=== PATIENT | female | born 1935 | race Caucasian/White ===

== ENCOUNTER 2018-02-12 05:15 | Emergency (ER) | payer MEDICARE, OTHER, SELFPAY ==
[2018-02-12 05:23] VITALS: BP 159/51; PULSE 60; RESP 17; TEMP 36.8; O2SAT 92
[2018-02-12 05:38] VITALS: BP 158/60; PULSE 70; RESP 16; O2SAT 94
[2018-02-12 06:00] LABS: Add Manual Diff / Slide Review NO; Basophils Percent Auto 0.4 % (0-2); Eosinophils Percent Auto 3.4 % (2-4); Hematocrit 37.4 % (36-46); Hemoglobin 12.8 g/dL (12.0-16.0); Lymphocytes Percent Auto 29.1 % (25-40); Mean Corpuscular HGB Conc 34.3 % (30-36); Mean Corpuscular Hemoglobin 30.8 PG (26-34); Mean Corpuscular Volume 89.7 fL (80-100); Monocytes Percent Auto 7.6 % (3-14); Neutrophils Absolute Auto 3200 /uL (3000-5900); Neutrophils Percent Auto 59.5 % (50-75); Platelet Count 211 X10^3/uL (150-400); Red Blood Cell Count 4.17 X10^6/uL (4.0-5.2); Red Cell Distribution Width 12.3 % (11.6-14.8); White Blood Cell Count 5.4 X10^3/uL (4.5-11.0)
[2018-02-12] MEDS: SODIUM CHLORIDE 0.9% 1,000 ML 1000 ML IV (06:04)
[2018-02-12 06:06] LABS: Alanine Aminotransferase 32 IU/L (9-52); Albumin 3.6 g/dL (3.5-5.0); Albumin Globulin Ratio 1.4 (1.0-2.8); Alkaline Phosphatase 109 U/L (38-126); Aspartate Aminotransferase 26 IU/L (14-36); Bilirubin Total 0.4 mg/dL (0.2-1.3); Blood Urea Nitrogen 12 mg/dL (7-17); Calcium 8.8 mg/dL (8.4-10.2); Carbon Dioxide 31 mmol/L (22-32); Chloride 90 mmol/L (98-107); Estimated Glomerular Filt Rate > 60.0 mL/min (>60); Globulin 2.6 g/dL (1.7-4.1); Glucose 102 mg/dL (80-110); HEMOLYSIS < 15 (0-50); Potassium 3.8 mmol/L (3.4-5.1); Sodium 128 mmol/L (137-145); Total Protein 6.2 g/dL (6.3-8.2)
[2018-02-12 06:18] LABS: Troponin I < 0.012 ng/mL (0.01-0.034)
--- NOTE | 2018-02-12 07:10 | ED.WEAKNESS ---
HPI - Weakness General Chief complaint: Weakness Stated complaint: weakness Time Seen by Provider: 02/12/18 05:33 Source: patient, family and EMS Mode of arrival: EMS Limitations: no limitations History of Present Illness HPI Narrative: 82-year-old female presents to the emergency department via EMS for an episode this morning of near syncopal episode with diaphoresis upon getting out of bed this morning. She went to bed feeling fine and denies any recent illness, diet or medication change. She states she felt fine when she woke up and developed the above-stated symptoms when she sat up from bed. When EMS arrived they found her systolic blood pressure to be in the 90s. An IV was placed and by arrival her blood pressure was in the 150s. She has remained asymptomatic for the duration of her visit. Patient denies new neuro symptoms. 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 She gets around with a scooter at baseline and can walk with assistance. MD Complaint: generalized weakness Onset (ago): minute(s) Duration: improved and now resolved Location: generalized Migration: none Severity: mild Relieving factors: none Exacerbating factors: movement Associated symptoms: denies other symptoms Related Data Home Medications Medication Instructions Recorded Confirmed ASCORBIC ACID (VITAMIN C ER) 1,500 mg PO Q DAY #0 11/28/10 11/26/17 Previous Rx's Medication Instructions Recorded atenolol 12.5 mg PO BID #90 tab 05/25/17 alendronate [Fosamax] 70 mg PO QWEEK #12 tab 09/07/17 carbamazepine 200 mg PO QID #360 tabs 09/07/17 losartan 50 mg PO QDAY #90 tab 09/07/17 clopidogrel 75 mg tablet 75 mg PO QDAY #90 tab 11/17/17 losartan 100 mg tablet 100 mg PO DAILY #90 tab 11/26/17 atorvastatin 40 mg tablet 40 mg PO HS #90 tab 11/30/17 amlodipine 5 mg tablet 5 mg PO BID #180 tab 12/13/17 phenobarbital 32.4 mg tablet See Label Instructions PO QDAY #90 12/28/17 tab Allergies Allergy/AdvReac Type Severity Reaction Status Date / Time lisinopril [LISINOPRIL] Allergy Mild Cough Verified 11/26/17 15:59 adhesive [ADHESIVE] Allergy Unknown (tape) Verified 11/26/17 15:59 codeine [CODEINE] Allergy Unknown Verified 11/26/17 15:59 phenytoin [PHENYTOIN] Allergy Unknown Verified 11/26/17 15:59 Review of Systems Review of Systems All systems reviewed & are unremarkable except as noted in HPI and below Constitutional Denies chills, Denies fever(s), Denies lethargy and Denies weakness Eyes Denies change in vision, Denies eye discharge, Denies irritation and Denies loss of vision ENT Ears, Nose, Mouth, and Throat: Denies change in voice, Denies neck pain and Denies sore throat Cardiovascular Denies chest pain, Denies irregular heart rhythm, Reports lightheadedness, Denies palpitations, Denies dyspnea, Denies dyspnea on exertion and Denies orthopnea Respiratory Denies cough, Denies dyspnea, Denies dyspnea on exertion and Denies wheezing Gastrointestinal Gastrointestinal: Denies abdominal pain, Denies change in bowel habits, Denies diarrhea, Denies nausea and Denies vomiting Genitourinary Denies hematuria, Denies flank pain, Denies urinary incontinence and Denies urinary urgency Musculoskeletal Denies neck pain Integumentary/Breasts Denies pruritus, Denies erythema, Denies rash and Denies wounds Neurologic Denies confusion, Denies loss of vision and Denies weakness Psychiatric Denies anxiety, Denies confusion, Denies depression, Denies homicidal ideation and Denies suicidal ideation Endocrine Denies palpitations Hematologic/Lymphatic Denies easy bruising Allergic/Immunologic Denies wheezing [facility] Medical History Carotid artery disease (Chronic Unknown) Chronic UTI (Chronic Unknown) Hyperlipidemia (Chronic Unknown) Hypertension (Chronic Unknown) Osteopenia (Chronic 2007) Pacemaker (Chronic Unknown) History of CVA (cerebrovascular accident) (Resolved 2013) Myocardial infarction (Resolved Unknown) Seizure (Resolved Unknown) Family History Father Alcoholism Sister Breast cancer Social History Smoking Status: Never smoker Exam Narrative Exam Narrative: Pleasant 82-year-old female in no obvious or significant distress Initial Vital Signs Initial Vital Signs: Vital Signs Temperature 98.2 F 02/12/18 05:23 Pulse Rate 60 02/12/18 05:23 Respiratory Rate 17 02/12/18 05:23 Blood Pressure 159/51 H 02/12/18 05:23 Pulse Oximetry 92 02/12/18 05:23 Const General: cooperative and well developed Nutritional Appearance: well nourished Orientation: alert, awake, oriented x3 and not confused HENAL Head: other (minimal erythema on L forehead, possible spider bite. No fluctuance or induration) Nose: external nose normal Mouth: oral mucosae normal Teeth and gingiva: dentition normal Eyes General: appearance normal, both eyes and all related structures Eyelids: eyelids normal Conjunctivae: conjunctivae normal Sclera: sclerae normal Pupils: PERRL EOM: EOM intact bilaterally Chest Chest: normal inspection of the chest Resp Effort & Inspection: normal respiratory effort, able to speak in complete sentences, no respiratory distress and no use of accessory muscles Auscultation: clear to auscultation bilaterally, no rales, no rhonchi and no wheezes Cardio Rate: regular rate Rhythm: regular rhythm Heart Sounds: no click, no gallops, no murmurs and no rubs Pulses: normal peripheral pulses GI Inspection: non-distended Palpation: soft, no hepatosplenomegaly, No guarding, No pulsatile mass and No tender Auscultation: normal bowel sounds Back/Spine/Pelvis Back: normal to inspection Neuro General: alert, awake and oriented x3 Cranial Nerves: CN's II-XI intact bilaterally Cognition: normal cognition Speech: speech normal Course Orders Ordered: ED Orders 02/12/18 05:27 EKG-12 Lead Stat 02/12/18 05:39 Complete Blood Count AUTO DIFF Stat Comprehensive Metabolic Panel Stat Troponin I Stat 02/12/18 07:27 XR chest 1V Stat 02/12/18 08:00 EKG-12 Lead Stat 02/12/18 08:03 Troponin I Stat Discontinued Medications Sodium Chloride (Normal Saline 0.9%) 1,000 mls @ 1,000 mls/hr IV CONT CASSANDRA Last Infusion: 02/12/18 08:02 Dose: 0 mls/hr Admin: 02/12/18 06:04 Dose: 1,000 mls/hr Vital Signs - 8 hr 02/12/18 05:23 02/12/18 05:38 02/12/18 07:42 Temperature 98.2 F Pulse Rate 60 70 65 Pulse Rate [Orthostatic Lying] Pulse Rate [Orthostatic Sitting] Pulse Rate [Orthostatic Standing] Respiratory Rate 17 16 13 Blood Pressure 159/51 H Blood Pressure [Left Arm] 158/60 H 160/57 H Blood Pressure [Orthostatic Lying] Blood Pressure [Orthostatic Sitting] Blood Pressure [Orthostatic Standing] Pulse Oximetry 92 94 99 02/12/18 09:37 02/12/18 10:07 Temperature Pulse Rate 64 Pulse Rate [Orthostatic Lying] 63 Pulse Rate [Orthostatic Sitting] 70 Pulse Rate [Orthostatic Standing] 81 Respiratory Rate 18 Blood Pressure Blood Pressure [Left Arm] 145/80 H Blood Pressure [Orthostatic Lying] 157/65 H Blood Pressure [Orthostatic Sitting] 158/107 H Blood Pressure [Orthostatic Standing] 145/80 H Pulse Oximetry 98 MDM - Weakness Medical Records Attestation: I reviewed the patient's medical records. Lab Data Attestation: I reviewed the patient's lab results. patient is hyponatremic, but this is chronic Result diagrams: 02/12/18 05:39 02/12/18 05:39 Lab Results 02/12/18 02/12/18 02/12/18 Range/Units 05:39 05:39 05:39 WBC 5.4 (4.5-11.0) X10^3/uL RBC 4.17 (4.0-5.2) X10^6/uL Hgb 12.8 (12.0-16.0) g/dL Hct 37.4 (36-46) % MCV 89.7 (80-100) fL MCH 30.8 (26-34) PG MCHC 34.3 (30-36) % RDW 12.3 (11.6-14.8) % Plt Count 211 (150-400) X10^3/uL Neut % (Auto) 59.5 (50-75) % Lymph % (Auto) 29.1 (25-40) % Adams % (Auto) 7.6 (3-14) % Eos % (Auto) 3.4 (2-4) % Baso % (Auto) 0.4 (0-2) % Neut # (Auto) 3200 (8449-1506) /uL Sodium 128 L (137-145) mmol/L Potassium 3.8 (3.4-5.1) mmol/L Chloride 90 L (98-107) mmol/L Carbon Dioxide 31 (22-32) mmol/L BUN 12 (7-17) mg/dL Creatinine 0.60 (0.52-1.04) mg/dL Estimated GFR > 60.0 (>60) mL/min BUN/Creatinine Ratio 20.0 (6-22) Glucose 102 (80-110) mg/dL Calcium 8.8 (8.4-10.2) mg/dL Total Bilirubin 0.4 (0.2-1.3) mg/dL AST 26 (14-36) IU/L ALT 32 (9-52) IU/L Alkaline Phosphatase 109 (38-126) U/L Troponin I < 0.012 (0.01-0.034) ng/mL Total Protein 6.2 L (6.3-8.2) g/dL Albumin 3.6 (3.5-5.0) g/dL Globulin 2.6 (1.7-4.1) g/dL Albumin/Globulin Ratio 1.4 (1.0-2.8) /05/22 Range/Units 08:03 WBC (4.5-11.0) X10^3/uL RBC (4.0-5.2) X10^6/uL Hgb (12.0-16.0) g/dL Hct (36-46) % MCV (80-100) fL MCH (26-34) PG MCHC (30-36) % RDW (11.6-14.8) % Plt Count (150-400) X10^3/uL Neut % (Auto) (50-75) % Lymph % (Auto) (25-40) % Adams % (Auto) (3-14) % Eos % (Auto) (2-4) % Baso % (Auto) (0-2) % Neut # (Auto) (2489-6522) /uL Sodium (137-145) mmol/L Potassium (3.4-5.1) mmol/L Chloride (98-107) mmol/L Carbon Dioxide (22-32) mmol/L BUN (7-17) mg/dL Creatinine (0.52-1.04) mg/dL Estimated GFR (>60) mL/min BUN/Creatinine Ratio (6-22) Glucose (80-110) mg/dL Calcium (8.4-10.2) mg/dL Total Bilirubin (0.2-1.3) mg/dL AST (14-36) IU/L ALT (9-52) IU/L Alkaline Phosphatase (38-126) U/L Troponin I < 0.012 (0.01-0.034) ng/mL Total Protein (6.3-8.2) g/dL Albumin (3.5-5.0) g/dL Globulin (1.7-4.1) g/dL Albumin/Globulin Ratio (1.0-2.8) Imaging Data Chest x-ray: My impression: PROCEDURE: XR CHEST 1V INDICATIONS: fall, trauma, preop TECHNIQUE: One view of the chest was acquired. COMPARISON: [facility], , CHEST 2 VIEW, 02/26/2016, 11:38. FINDINGS: Surgical changes and devices: Left-sided pacer. Lungs and pleura: No pleural effusions or pneumothorax. Lungs are clear. Mediastinum: Mediastinal contours appear normal. Heart size is normal. Bones and chest wall: No suspicious bony lesions. Overlying soft tissues appear unremarkable. IMPRESSION: No acute process. Dictated by: Nakul Raya M.D. on 02/12/2018 at 8:11 Approved by: Nakul Raya M.D. on 02/12/2018 at 8:12 ECG Data Attestation: I personally reviewed and interpreted this ECG as follows: Prior ECG tracings: available for review Interpretation: paced at 60. No ectopy. No ST segmental changes MDM Narrative Medical decision making narrative: 82-year-old female with history of stroke presents with near-syncope with change in position this morning. She has been asymptomatic for the duration of her visit. Vital signs have been stable, orthostatics show no change. Multiple EKGs are unchanged. Troponin times to unremarkable. Lab abnormalities are chronic for her. She will follow up closely. Family at bedside and is in agreement with this plan Discharge Plan Departure Patient Disposition: Home, Self-Care Clinical Impression: Near syncope Discharge Date/Time: 02/12/18 10:09 Interventions: ED Discharge Assessment Last Done: 02/12/18 10:09 Instructions: DI for Syncope in Adults (Fainting) Activity Restrictions/Additional Instructions: *You have been diagnosed with [near syncope ] *What to do: * continue to Take medications as directed *Follow up with your primary care provider in 2-3 days, call for an appointment. Let them know you were seen in the Emergency Department and that we ask that you be seen in follow up *Return to ER if you should have any new, worsening or concerning symptoms, such as [repeat episodes, chest pain, shortness of breath or other symptoms ] Prescriptions: No Action losartan 100 mg tablet 100 mg PO DAILY Qty: 90 RF: 1 ASCORBIC ACID (VITAMIN C ER) 1,500 mg PO Q DAY Qty: 0 RF: 0 atenolol 25 MG tablet 12.5 mg PO BID Qty: 90 RF: 3 losartan 50 MG tablet 50 mg PO QDAY Qty: 90 RF: 0 alendronate [Fosamax] 70 MG tablet 70 mg PO QWEEK Qty: 12 RF: 0 carbamazepine 200 MG tablet 200 mg PO QID Qty: 360 RF: 0 clopidogrel [Plavix] 75 mg tablet 75 mg PO QDAY Qty: 90 RF: 0 atorvastatin 40 mg tablet 40 mg PO HS Qty: 90 RF: 1 amlodipine [Norvasc] 5 mg tablet 5 mg PO BID Qty: 180 RF: 1 phenobarbital 32.4 mg tablet See Label Instructions PO QDAY Qty: 90 RF: 0
--- NOTE | 2018-02-12 07:27 | DI.RAD.S_ITS ---
PROCEDURE: XR CHEST 1V INDICATIONS: fall, trauma, preop TECHNIQUE: One view of the chest was acquired. COMPARISON: [facility], , CHEST 2 VIEW, 02/26/2016, 11:38. FINDINGS: Surgical changes and devices: Left-sided pacer. Lungs and pleura: No pleural effusions or pneumothorax. Lungs are clear. Mediastinum: Mediastinal contours appear normal. Heart size is normal. Bones and chest wall: No suspicious bony lesions. Overlying soft tissues appear unremarkable. IMPRESSION: No acute process. Dictated by: Nakul Raya M.D. on 02/12/2018 at 8:11 Approved by: Nakul Raya M.D. on 02/12/2018 at 8:12
[2018-02-12 07:42] VITALS: BP 160/57; PULSE 65; RESP 13; O2SAT 99
[2018-02-12 08:36] LABS: Troponin I < 0.012 ng/mL (0.01-0.034)
[2018-02-12 09:37] VITALS: BP 145/80; BP 157/65; BP 158/107; PULSE 63; PULSE 70; PULSE 81
[2018-02-12 10:07] VITALS: BP 145/80; PULSE 64; RESP 18; O2SAT 98
== END 2018-02-12 10:09 | disposition home or self-care (01) ==
PROVIDERS: Emergency Medicine; Emergency Provider Emergency Medicine; PCP Family Medicine
DX: R55 Syncope and collapse (principal)
CPT/HCPCS: 71045; 80053; 81003; 84484; 85025; 93005; 93010; 96360; 96361; 99285

== ENCOUNTER → 2018-03-16 10:36 | Outpatient (CLI) | payer MEDICARE, OTHER, SELFPAY ==
[2018-03-16 11:26] LABS: Add Manual Diff / Slide Review NO; Basophils Percent Auto 0.4 % (0-2); Eosinophils Percent Auto 3.2 % (2-4); Hematocrit 40.2 % (36-46); Lymphocytes Percent Auto 22.4 % (25-40); Mean Corpuscular HGB Conc 34.8 % (30-36); Mean Corpuscular Hemoglobin 30.7 PG (26-34); Monocytes Percent Auto 5.7 % (3-14); Neutrophils Absolute Auto 3800 /uL (3000-5900); Neutrophils Percent Auto 68.3 % (50-75); Platelet Count 268 X10^3/uL (150-400); Red Blood Cell Count 4.57 X10^6/uL (4.0-5.2); Red Cell Distribution Width 12.5 % (11.6-14.8); White Blood Cell Count 5.5 X10^3/uL (4.5-11.0)
[2018-03-16 11:45] LABS: Alanine Aminotransferase 26 IU/L (9-52); Albumin 4.1 g/dL (3.5-5.0); Albumin Globulin Ratio 1.4 (1.0-2.8); Alkaline Phosphatase 117 U/L (38-126); Aspartate Aminotransferase 29 IU/L (14-36); Bilirubin Total 0.4 mg/dL (0.2-1.3); Blood Urea Nitrogen 13 mg/dL (7-17); Calcium 9.3 mg/dL (8.4-10.2); Carbon Dioxide 34 mmol/L (22-32); Chloride 91 mmol/L (98-107); Cholesterol 190 mg/dL (140-199); Estimated Glomerular Filt Rate > 60.0 mL/min (>60); Glucose 91 mg/dL (80-110); HDL Cholesterol 51 mg/dL (40-60); HEMOLYSIS < 15 (0-50); LDL Cholesterol Calculated 107 mg/dL (<100); Potassium 4.2 mmol/L (3.4-5.1); Sodium 133 mmol/L (137-145); Total Protein 7.1 g/dL (6.3-8.2); Triglycerides 161 mg/dL (35-150)
== END ==
PROVIDERS: PCP Family Medicine; Visit Provider Family Medicine
DX: E78.5 Hyperlipidemia, unspecified (principal); I10 Essential (primary) hypertension; I25.10 Atherosclerotic heart disease of native coronary artery without angina pectoris; Z51.81 Encounter for therapeutic drug level monitoring
CPT/HCPCS: 36415; 80053; 80061; 85025

== ENCOUNTER → 2018-03-23 13:26 | Outpatient (CLI) | payer MEDICARE, OTHER, SELFPAY | PROVIDERS: PCP Family Medicine; Visit Provider Family Medicine | DX: M81.0 Age-related osteoporosis without current pathological fracture (principal); Z78.0 Asymptomatic menopausal state | CPT/HCPCS: 77080 ==

== ENCOUNTER → 2018-10-10 14:32 | Outpatient (CLI) | payer MEDICARE, OTHER, SELFPAY ==
[2018-10-10 15:30] LABS: Add Manual Diff / Slide Review NO; Basophils Absolute Auto 0 /uL (0-100); Basophils Percent Auto 0.6 % (0-2); Eosinophils Absolute Auto 200 /uL (0-450); Eosinophils Percent Auto 3.4 % (2-4); Hematocrit 41.2 % (36-46); Hemoglobin 13.7 g/dL (12.0-16.0); Lymphocytes Absolute Auto 1700 /uL (1100-4500); Lymphocytes Percent Auto 25.7 % (25-40); Mean Corpuscular HGB Conc 33.3 % (30-36); Mean Corpuscular Hemoglobin 30.3 PG (26-34); Monocytes Absolute Auto 400 /uL (0-900); Monocytes Percent Auto 6.5 % (3-14); Neutrophils Absolute Auto 4300 /uL (1500-7000); Neutrophils Percent Auto 63.8 % (50-75); Platelet Count 259 X10^3/uL (150-400); Red Blood Cell Count 4.52 X10^6/uL (4.0-5.2); Red Cell Distribution Width 12.6 % (11.6-14.8); White Blood Cell Count 6.7 X10^3/uL (4.5-11.0)
[2018-10-10 15:49] LABS: BUN Creatinine Ratio 27.1 (6-22); Blood Urea Nitrogen 19 mg/dL (7-17); Calcium 9.6 mg/dL (8.4-10.2); Carbon Dioxide 33 mmol/L (22-32); Chloride 93 mmol/L (98-107); Cholesterol 189 mg/dL (140-199); Estimated Glomerular Filt Rate > 60.0 mL/min (>60); Glucose 98 mg/dL (80-110); HDL Cholesterol 51 mg/dL (40-60); HEMOLYSIS < 15 (0-50); LDL Cholesterol Calculated 81 mg/dL (<100); Potassium 4.5 mmol/L (3.4-5.1); Sodium 134 mmol/L (137-145); Triglycerides 287 mg/dL (35-150)
== END ==
PROVIDERS: PCP Family Medicine; Visit Provider Internal Medicine Cardiovascular Disease
DX: I48.0 Paroxysmal atrial fibrillation (principal); I10 Essential (primary) hypertension; E78.5 Hyperlipidemia, unspecified
CPT/HCPCS: 36415; 80048; 80061; 85025

== ENCOUNTER → 2019-03-31 14:50 | Outpatient (CLI) | payer MEDICARE, OTHER, SELFPAY ==
--- NOTE | 2019-03-31 16:18 | PT.OIE ---
Current Diagnoses Cerebral infarction, unspecified (03/31/19) Past Medical History (Last Reviewed 04/12/18 @ 15:02 by Jeanne Buchanan DO) Carotid artery disease (Chronic Unknown) Cataracts, bilateral (Resolved ~03/2012) Chronic UTI (Chronic Unknown) History of CVA (cerebrovascular accident) (Resolved 2013) Hyperlipidemia (Chronic Unknown) Hypertension (Chronic Unknown) Myocardial infarction (Resolved Unknown) Osteopenia (Chronic 2007) Pacemaker (Chronic ~09/2011) Seizure (Resolved Unknown) Seizures (Chronic) Past Surgical History (Last Reviewed 04/12/18 @ 15:02 by Jeanne Buchanan DO) History of permanent cardiac pacemaker placement (Resolved ~09/2011) Hx of cataract surgery (Resolved 03/2012) Hx of heart artery stent (Resolved 2009) Hx of hysterectomy (Resolved) Hx of resection of meningioma (Resolved 1984) Visit Care Team Role Provider Type Jeanne Buchanan DO Attending Provider Physician Primary Care Provider Specialty: [facility] Address: [address] [place] [address], [facility] Email: [email or web address] Physical Therapy Initial Evaluation PT-OP-A Visit Information Start: 04/05/19 16:17 Freq: Status: Active Protocol: Document 03/31/19 15:00 JIMENAS (Rec: 04/05/19 16:18 ADRIANNA [email or web address]) Out-Patient Physical Therapy Visit Information Visit Information Visit Type Initial Evaluation Visit Note Wheelchair evaluation only
--- NOTE | 2019-04-05 11:37 | PT.OIE ---
Current Diagnoses Cerebral infarction, unspecified (03/31/19) Past Medical History (Last Reviewed 04/12/18 @ 15:02 by Jeanne Buchanan DO) Carotid artery disease (Chronic Unknown) Cataracts, bilateral (Resolved ~03/2012) Chronic UTI (Chronic Unknown) History of CVA (cerebrovascular accident) (Resolved 2013) Hyperlipidemia (Chronic Unknown) Hypertension (Chronic Unknown) Myocardial infarction (Resolved Unknown) Osteopenia (Chronic 2007) Pacemaker (Chronic ~09/2011) Seizure (Resolved Unknown) Seizures (Chronic) Past Surgical History (Last Reviewed 04/12/18 @ 15:02 by Jeanne Buchanan DO) History of permanent cardiac pacemaker placement (Resolved ~09/2011) Hx of cataract surgery (Resolved 03/2012) Hx of heart artery stent (Resolved 2009) Hx of hysterectomy (Resolved) Hx of resection of meningioma (Resolved 1984) Visit Care Team Role Provider Type Jeanne Buchanan DO Attending Provider Physician Primary Care Provider Specialty: [facility] Address: [address] [place] [address], [address], [facility] Email: [email or web address]
== END ==
PROVIDERS: PCP Family Medicine; Visit Provider Family Medicine
DX: I63.9 Cerebral infarction, unspecified (principal)
CPT/HCPCS: 97161

== ENCOUNTER → 2019-05-24 09:43 | Outpatient (CLI) | payer MEDICARE, OTHER, SELFPAY ==
[2019-05-24 10:10] LABS: Add Manual Diff / Slide Review NO; Basophils Absolute Auto 0 /uL (0-100); Basophils Percent Auto 0.4 % (0-2); Eosinophils Absolute Auto 100 /uL (0-450); Eosinophils Percent Auto 2.4 % (2-4); Hematocrit 40.6 % (36-46); Hemoglobin 13.8 g/dL (12.0-16.0); Lymphocytes Absolute Auto 1200 /uL (1100-4500); Lymphocytes Percent Auto 21.7 % (25-40); Mean Corpuscular HGB Conc 33.9 % (30-36); Mean Corpuscular Hemoglobin 30.6 PG (26-34); Mean Corpuscular Volume 90.3 fL (80-100); Monocytes Absolute Auto 300 /uL (0-900); Monocytes Percent Auto 4.8 % (3-14); Neutrophils Absolute Auto 3800 /uL (1500-7000); Neutrophils Percent Auto 70.7 % (50-75); Platelet Count 247 X10^3/uL (150-400); Red Blood Cell Count 4.49 X10^6/uL (4.0-5.2); White Blood Cell Count 5.4 X10^3/uL (4.5-11.0)
[2019-05-24 10:37] LABS: Alanine Aminotransferase 22 IU/L (<35); Albumin 3.9 g/dL (3.5-5.0); Albumin Globulin Ratio 1.6 (1.0-2.8); Alkaline Phosphatase 136 U/L (38-126); Aspartate Aminotransferase 26 IU/L (14-36); BUN Creatinine Ratio 23.3 (6-22); Bilirubin Total 0.4 mg/dL (0.2-1.3); Blood Urea Nitrogen 14 mg/dL (7-17); Calcium 9.5 mg/dL (8.4-10.2); Carbon Dioxide 32 mmol/L (22-32); Chloride 92 mmol/L (98-107); Cholesterol 207 mg/dL (140-199); Estimated Glomerular Filt Rate > 60.0 mL/min (>60); Globulin 2.4 g/dL (1.7-4.1); Glucose 93 mg/dL (80-110); HDL Cholesterol 58 mg/dL (40-60); HEMOLYSIS < 15 (0-50); LDL Cholesterol Calculated 115 mg/dL (<100); Potassium 4.3 mmol/L (3.4-5.1); Sodium 130 mmol/L (137-145); Total Protein 6.3 g/dL (6.3-8.2); Triglycerides 169 mg/dL (35-150)
[2019-05-24 11:06] LABS: Thyroid Stimulating Hormone 3.32 uIU/mL (0.47-4.68)
[2019-05-27 16:14] LABS: Carbamazepine Tegretol Level 8.9 mg/L (4.0-12.0)
== END ==
PROVIDERS: PCP Family Medicine; Visit Provider Family Medicine
DX: Z51.81 Encounter for therapeutic drug level monitoring (principal); E78.5 Hyperlipidemia, unspecified; I10 Essential (primary) hypertension; Z86.69 Personal history of other diseases of the nervous system and sense organs; Z86.73 Personal history of transient ischemic attack (TIA), and cerebral infarction without residual deficits
CPT/HCPCS: 36415; 80053; 80061; 80156; 84443; 85025

== ENCOUNTER → 2020-06-05 09:15 | Outpatient (CLI) | payer MEDICARE, OTHER, SELFPAY ==
[2020-06-05 10:09] LABS: Add Manual Diff / Slide Review NO; Basophils Absolute Auto 0 /uL (0-100); Basophils Percent Auto 0.4 % (0-2); Eosinophils Absolute Auto 200 /uL (0-450); Eosinophils Percent Auto 2.3 % (2-4); Hematocrit 41.2 % (36-46); Hemoglobin 13.8 g/dL (12.0-16.0); Lymphocytes Absolute Auto 1500 /uL (1100-4500); Lymphocytes Percent Auto 21.1 % (25-40); Mean Corpuscular HGB Conc 33.5 % (30-36); Mean Corpuscular Hemoglobin 30.3 PG (26-34); Mean Corpuscular Volume 90.3 fL (80-100); Monocytes Absolute Auto 400 /uL (0-900); Monocytes Percent Auto 6.3 % (3-14); Neutrophils Absolute Auto 4800 /uL (1500-7000); Neutrophils Percent Auto 69.9 % (50-75); Platelet Count 248 X10^3/uL (150-400); Red Blood Cell Count 4.56 X10^6/uL (4.0-5.2); Red Cell Distribution Width 12.8 % (11.6-14.8); White Blood Cell Count 6.9 X10^3/uL (4.5-11.0)
[2020-06-05 10:58] LABS: BUN Creatinine Ratio 27.3 (6-22); Blood Urea Nitrogen 15 mg/dL (7-17); Calcium 9.4 mg/dL (8.4-10.2); Carbon Dioxide 33 mmol/L (22-32); Chloride 94 mmol/L (98-107); Cholesterol 191 mg/dL (140-199); Estimated Glomerular Filt Rate > 60.0 mL/min (>60); Glucose 91 mg/dL (80-110); HDL Cholesterol 58 mg/dL (40-60); HEMOLYSIS < 15 (0-50); LDL Cholesterol Calculated 95 mg/dL (<100); Potassium 4.3 mmol/L (3.4-5.1); Sodium 129 mmol/L (137-145); Triglycerides 191 mg/dL (35-150)
== END ==
PROVIDERS: PCP Family Medicine; Referring Provider Internal Medicine Cardiovascular Disease; Visit Provider Internal Medicine Cardiovascular Disease
DX: I10 Essential (primary) hypertension (principal); E78.5 Hyperlipidemia, unspecified
CPT/HCPCS: 36415; 80048; 80061; 85025

== ENCOUNTER → 2020-07-03 08:47 | Outpatient (CLI) | payer MEDICARE, OTHER, SELFPAY ==
[2020-07-03 10:21] LABS: BUN Creatinine Ratio 32.1 (6-22); Blood Urea Nitrogen 17 mg/dL (7-17); Calcium 9.3 mg/dL (8.4-10.2); Carbon Dioxide 33 mmol/L (22-32); Chloride 97 mmol/L (98-107); Estimated Glomerular Filt Rate > 60.0 mL/min (>60); Glucose 97 mg/dL (80-110); HEMOLYSIS < 15 (0-50); Potassium 4.2 mmol/L (3.4-5.1); Sodium 131 mmol/L (137-145)
== END ==
PROVIDERS: PCP Family Medicine; Referring Provider Internal Medicine Cardiovascular Disease; Visit Provider Internal Medicine Cardiovascular Disease
DX: I10 Essential (primary) hypertension (principal)
CPT/HCPCS: 36415; 80048

== ENCOUNTER 2020-11-12 11:32 | Emergency (ER) | payer MEDICARE, OTHER, SELFPAY ==
[2020-11-12] VITALS (18 sets, daily range): BP systolic 143–220; BP diastolic 70–113; PULSE 60–70; RESP 12; TEMP 36.2; O2SAT 91–98; BMI 29.2
--- NOTE | 2020-11-12 11:34 | ED_ITS ---
HPI - Extremity Injury (Lower) General Chief Complaint: Extremity Injury, Lower Stated Complaint: Leg pain Time Seen by Provider: 11/12/20 11:34 Source: patient, family and EMS Mode of arrival: EMS Limitations: no limitations History of Present Illness HPI Narrative: 84-year-old female nonsmoker with history of hypertension, hyperlipidemia, anticoagulated with prior stroke and right-sided deficits presents by EMS for evaluation of severe left leg pain for the past few days. She lives at home alone and normally uses a walker to transfer but does not ambulate. She has been in too much pain to even put weight on her left leg despite denying any obvious traumatic injury. She has had no fever or chills. She states she has significant pain with standing and motion but is otherwise well. She has significant swelling of her knee without redness or warmth. She is not dizzy nor weak or lightheaded. MD complaint: knee injury Place: home Severity: moderate Relieving factors: rest Exacerbating factors: weight bearing, movement and palpation Associated symptoms: swelling Other symptoms: none Related Data Home Medications Medication Instructions Recorded Confirmed ASCORBIC ACID (VITAMIN C ER) 1,500 mg PO Q DAY #0 11/28/10 09/13/20 Previous Rx's Medication Instructions Recorded PT/OT Treat and Eval/Wheelchair #1 each 03/17/19 Assessment apixaban 5 mg tablet 5 mg PO BID #60 tab 01/30/20 amlodipine 5 mg tablet 5 mg PO BID #180 tab 06/05/20 losartan 100 mg tablet See Rx Instructions .ROUTE 08/23/20 .COMPLEX #90 tab atenolol 25 mg tablet 25 mg PO BID #180 tab 09/13/20 atorvastatin 40 mg tablet See Rx Instructions .ROUTE 10/16/20 .COMPLEX #90 tab carbamazepine 200 mg tablet See Rx Instructions .ROUTE 10/29/20 .COMPLEX #90 tab phenobarbital 32.4 mg tablet See Rx Instructions .ROUTE 11/06/20 .COMPLEX #60 tab hydrocodone-acetaminophen 1 tab PO Q4-6H PRN #10 tab 11/12/20 Allergies Allergy/AdvReac Type Severity Reaction Status Date / Time lisinopril [LISINOPRIL] Allergy Mild Cough Verified 11/12/20 11:37 adhesive [ADHESIVE] Allergy Unknown (tape) Verified 11/12/20 11:37 codeine [CODEINE] Allergy Unknown Verified 11/12/20 11:37 phenytoin [PHENYTOIN] Allergy Unknown Verified 11/12/20 11:37 Review of Systems Constitutional Constitutional: Denies chills, Denies fatigue, Denies fever(s), Denies frequent falls, Denies lethargy and Denies weakness Eyes Eyes: Denies change in vision, Denies eye discharge, Denies irritation and Denies loss of vision ENT Ears, Nose, Mouth, and Throat: Denies change in voice, Denies dizziness, Denies neck pain, Denies sore throat and Denies throat swelling Cardiovascular Cardiovascular: Denies chest pain, Denies irregular heart rhythm, Denies lightheadedness, Denies palpitations, Denies dyspnea, Denies dyspnea on exertion and Denies orthopnea Respiratory Respiratory: Denies cough, Denies dyspnea, Denies dyspnea on exertion and Denies wheezing Gastrointestinal Gastrointestinal: Denies abdominal pain, Denies change in bowel habits, Denies diarrhea, Denies nausea and Denies vomiting Musculoskeletal Musculoskeletal: Reports joint swelling, Reports limited range of motion, Denies neck pain and Denies numbness Integumentary/Breasts Skin/Breast: Denies pruritus, Denies erythema, Denies rash and Denies wounds Neurologic Neurologic: Denies behavioral changes, Denies confusion, Denies dizziness, Denies frequent falls, Denies loss of vision, Denies numbness and Denies weakness Psychiatric Psychiatric: Denies anxiety, Denies behavioral changes, Denies confusion, Denies depression, Denies homicidal ideation and Denies suicidal ideation Endocrine Endocrine: Denies fatigue, Denies flushing and Denies palpitations Hematologic/Lymphatic Hematologic/Lymphatic: Denies easy bruising Allergic/Immunologic Allergic/Immunologic: Denies urticaria, Denies throat swelling and Denies wheezing Patient History Medical History (Updated 11/12/20 @ 16:11 by Jose Giraldo DO) Carotid artery disease (Unknown) Cataracts, bilateral (~03/2012) Chronic UTI (Unknown) History of CVA (cerebrovascular accident) (2013) Hyperlipidemia (Unknown) Hypertension (Unknown) Myocardial infarction (Unknown) Osteopenia (2007) Pacemaker (~09/2011) Right sided weakness Seizure (Unknown) Seizures Surgical History History of permanent cardiac pacemaker placement (~09/2011) Hx of cataract surgery (03/2012) Hx of heart artery stent (2009) Hx of hysterectomy Hx of resection of meningioma (1984) Family History (Updated 08/16/19 @ 16:24 by Bacilio Davila DO) Father Alcoholism Sister Breast cancer Mother No problems noted. Social History Smoking Status: Never smoker Smoking Status: Never smoker Exam Narrative Exam Narrative: GENERAL: [84] year old patient appears stated age. Well- nourished, well-developed patient, in mild distress. HEAD: Atraumatic. Normocephalic. EYES: Pupils equal round and reactive. Extraocular motions intact. No scleral icterus. No injection or drainage. ENT: Nose without bleeding, purulent drainage. Throat without erythema, tonsillar hypertrophy or exudate. Airway patent. NECK: Trachea midline. Non tender CARDIOVASCULAR: Regular rate and rhythm without murmurs, gallops, or rubs. RESPIRATORY: Clear to auscultation. Breath sounds equal bilaterally. No wheezes, rales, or rhonchi. GASTROINTESTINAL: Abdomen soft, non-tender, nondistended. EXTREMITIES: Left knee with moderate effusion, no redness, mild warmth and tenderness to palpation. No tenderness in foot, ankle or hip on this side. BACK: Nontender without deformity or crepitance. No flank tenderness. NEURO: AOx3. Right-sided weakness is chronic per patient and family SKIN: No rash or erythema of visible areas Initial Vital Signs Initial Vital Signs: Vital Signs Temperature 97.2 F L 11/12/20 11:35 Pulse Rate 60 11/12/20 11:35 Respiratory Rate 12 11/12/20 11:35 Blood Pressure 143/97 H 11/12/20 11:35 Pulse Oximetry 95 11/12/20 11:35 Procedures Joint Aspiration Joint Asp./Inject. 1: Time Out Performed: Yes Side of body: left Joint Aspirated: knee Ultrasound Guidance: No Skin Prep: Chlorhexidine Local Anesthetic: lidocaine 1% and with epi Amount of anesthesia used (mL): 6 Needle Size Used: 18G Fluid Obtained: clear Total fluid obtained (mL): 65 Patient Tolerated Procedure: Well Complications: none Course Course Course Narrative: Patient still resistant to standing and attempt at transfer after joint aspiration. This is a significant recent change and patient lives at home, hospitalist was consulted for possible admission but after lengthy bedside discussion patient and family would prefer a trial at home 1st. Family can stay with her and help assist and insure that she tolerates the pain medications. They have been given return precautions and questions have been answered to their apparent satisfaction Orders Ordered: Discontinued Medications Bupivacaine HCl/Epinephrine Bitart (Bupivacaine 0.5% W/ Epi (Pf) 30 Ml Vial) 5 ml SUBCUT NOW ONE Stop: 11/12/20 12:14 Last Admin: 11/12/20 12:26 Dose: 5 ml Documented by: CTRRIVAS Sodium Chloride (Normal Saline 0.9%) 1,000 mls @ 125 mls/hr IV CONT CASSANDRA Last Admin: 11/12/20 12:23 Dose: 125 mls/hr Documented by: CTRRIVAS Vital Signs Vital signs: Vital Signs - 8 hr 11/12/20 11:35 Temperature 97.2 F L Pulse Rate 60 Respiratory Rate 12 Blood Pressure 143/97 H Pulse Oximetry 95 MDM - Extremity Injury (Lower) Lab Data Result diagrams: 11/12/20 12:17 11/12/20 12:17 Labs: Lab Results 11/12/20 11/12/20 11/12/20 Range/Units 11:37 12:17 12:17 WBC 6.2 (4.5-11.0) X10^3/uL RBC 4.40 (4.0-5.2) X10^6/uL Hgb 13.4 (12.0-16.0) g/dL Hct 38.8 (36-46) % MCV 88.0 (80-100) fL MCH 30.5 (26-34) PG MCHC 34.6 (30-36) % RDW 12.9 (11.6-14.8) % Plt Count 227 (150-400) X10^3/uL Neut % (Auto) 79.4 H (50-75) % Lymph % (Auto) 13.8 L (25-40) % [place] % (Auto) 4.9 (3-14) % Eos % (Auto) 1.4 L (2-4) % Baso % (Auto) 0.5 (0-2) % Neut # (Auto) 4900 (6964-3911) /uL Lymph # (Auto) 900 L (3135-2631) /uL [place] # (Auto) 300 (0-900) /uL Eos # (Auto) 100 (0-450) /uL Baso # (Auto) 0 (0-100) /uL ESR (0-20) MM/HR Sodium 127 L (137-145) mmol/L Potassium 4.6 (3.4-5.1) mmol/L Chloride 92 L (98-107) mmol/L Carbon Dioxide 30 (22-32) mmol/L BUN 15 (7-17) mg/dL Creatinine 0.52 (0.52-1.04) mg/dL Estimated GFR > 60.0 (>60) mL/min BUN/Creatinine Ratio 28.8 H (6-22) Glucose 102 (80-110) mg/dL Calcium 9.4 (8.4-10.2) mg/dL Total Bilirubin 0.2 (0.2-1.3) mg/dL AST 31 (14-36) IU/L ALT 23 (<35) IU/L Alkaline Phosphatase 129 H (38-126) U/L Total Creatine Kinase (30-135) U/L CK-MB (CK-2) CK-MB (CK-2) Rel Index Troponin I (0.01-0.034) ng/mL C-Reactive Protein (<1.0) mg/dL NT-Pro-B Natriuret Pep (<450) pg/mL Total Protein 6.3 (6.3-8.2) g/dL Albumin 3.7 (3.5-5.0) g/dL Globulin 2.6 (1.7-4.1) g/dL Albumin/Globulin Ratio 1.4 (1.0-2.8) Urine Color Yellow Urine Appearance Sl cloudy Urine pH 7.5 (4.5-8.0) Ur Specific [place] 1.020 (1.000-1.035) Urine Protein Negative (Negative) Urine Glucose (UA) Negative (Negative) g/dL Urine Ketones Negative (NEGATIVE) Urine Occult Blood Negative (Negative) Urine Nitrate Negative (Negative) Urine Bilirubin Negative (NEGATIVE) Urine Urobilinogen 0.2 (0.2) E.U./dL Ur Leukocyte Esterase Negative (NEGATIVE) Urine RBC None seen (0-5/HPF) Urine WBC 1-5/hpf (0-5/HPF) Ur Squamous Epith Cells 1-5 /hpf (0-5/HPF) Urine Bacteria Many (>30) H (None) Ur Culture Indicated? Specimen cultured Fluid Color Fluid Appearance Fluid RBC /uL Fld Tot Nucleated Cell /uL Fluid Polynuclear WBCs % Fluid Mononuclear WBCs % Fluid Eosinophils % Fluid Other Cells % Body Fluid Clot SARS-CoV-2 (PCR) (Negative) 11/12/20 11/12/20 11/12/20 Range/Units 12:17 12:17 12:17 WBC (4.5-11.0) X10^3/uL RBC (4.0-5.2) X10^6/uL Hgb (12.0-16.0) g/dL Hct (36-46) % MCV (80-100) fL MCH (26-34) PG MCHC (30-36) % RDW (11.6-14.8) % Plt Count (150-400) X10^3/uL Neut % (Auto) (50-75) % Lymph % (Auto) (25-40) % [place] % (Auto) (3-14) % Eos % (Auto) (2-4) % Baso % (Auto) (0-2) % Neut # (Auto) (2187-9622) /uL Lymph # (Auto) (3874-3032) /uL [place] # (Auto) (0-900) /uL Eos # (Auto) (0-450) /uL Baso # (Auto) (0-100) /uL ESR 14 (0-20) MM/HR Sodium (137-145) mmol/L Potassium (3.4-5.1) mmol/L Chloride (98-107) mmol/L Carbon Dioxide (22-32) mmol/L BUN (7-17) mg/dL Creatinine (0.52-1.04) mg/dL Estimated GFR (>60) mL/min BUN/Creatinine Ratio (6-22) Glucose (80-110) mg/dL Calcium (8.4-10.2) mg/dL Total Bilirubin (0.2-1.3) mg/dL AST (14-36) IU/L ALT (<35) IU/L Alkaline Phosphatase (38-126) U/L Total Creatine Kinase 61 (30-135) U/L CK-MB (CK-2) TNP CK-MB (CK-2) Rel Index TNP Troponin I < 0.012 (0.01-0.034) ng/mL C-Reactive Protein (<1.0) mg/dL NT-Pro-B Natriuret Pep 198 (<450) pg/mL Total Protein (6.3-8.2) g/dL Albumin (3.5-5.0) g/dL Globulin (1.7-4.1) g/dL Albumin/Globulin Ratio (1.0-2.8) Urine Color Urine Appearance Urine pH (4.5-8.0) Ur Specific [place] (1.000-1.035) Urine Protein (Negative) Urine Glucose (UA) (Negative) g/dL Urine Ketones (NEGATIVE) Urine Occult Blood (Negative) Urine Nitrate (Negative) Urine Bilirubin (NEGATIVE) Urine Urobilinogen (0.2) E.U./dL Ur Leukocyte Esterase (NEGATIVE) Urine RBC (0-5/HPF) Urine WBC (0-5/HPF) Ur Squamous Epith Cells (0-5/HPF) Urine Bacteria (None) Ur Culture Indicated? Fluid Color Fluid Appearance Fluid RBC /uL Fld Tot Nucleated Cell /uL Fluid Polynuclear WBCs % Fluid Mononuclear WBCs % Fluid Eosinophils % Fluid Other Cells % Body Fluid Clot SARS-CoV-2 (PCR) Negative (Negative) 11/12/20 11/12/20 Range/Units 12:17 12:53 WBC (4.5-11.0) X10^3/uL RBC (4.0-5.2) X10^6/uL Hgb (12.0-16.0) g/dL Hct (36-46) % MCV (80-100) fL MCH (26-34) PG MCHC (30-36) % RDW (11.6-14.8) % Plt Count (150-400) X10^3/uL Neut % (Auto) (50-75) % Lymph % (Auto) (25-40) % [place] % (Auto) (3-14) % Eos % (Auto) (2-4) % Baso % (Auto) (0-2) % Neut # (Auto) (7974-0679) /uL Lymph # (Auto) (0557-1972) /uL [place] # (Auto) (0-900) /uL Eos # (Auto) (0-450) /uL Baso # (Auto) (0-100) /uL ESR (0-20) MM/HR Sodium (137-145) mmol/L Potassium (3.4-5.1) mmol/L Chloride (98-107) mmol/L Carbon Dioxide (22-32) mmol/L BUN (7-17) mg/dL Creatinine (0.52-1.04) mg/dL Estimated GFR (>60) mL/min BUN/Creatinine Ratio (6-22) Glucose (80-110) mg/dL Calcium (8.4-10.2) mg/dL Total Bilirubin (0.2-1.3) mg/dL AST (14-36) IU/L ALT (<35) IU/L Alkaline Phosphatase (38-126) U/L Total Creatine Kinase (30-135) U/L CK-MB (CK-2) CK-MB (CK-2) Rel Index Troponin I (0.01-0.034) ng/mL C-Reactive Protein 0.8 (<1.0) mg/dL NT-Pro-B Natriuret Pep (<450) pg/mL Total Protein (6.3-8.2) g/dL Albumin (3.5-5.0) g/dL Globulin (1.7-4.1) g/dL Albumin/Globulin Ratio (1.0-2.8) Urine Color Urine Appearance Urine pH (4.5-8.0) Ur Specific [place] (1.000-1.035) Urine Protein (Negative) Urine Glucose (UA) (Negative) g/dL Urine Ketones (NEGATIVE) Urine Occult Blood (Negative) Urine Nitrate (Negative) Urine Bilirubin (NEGATIVE) Urine Urobilinogen (0.2) E.U./dL Ur Leukocyte Esterase (NEGATIVE) Urine RBC (0-5/HPF) Urine WBC (0-5/HPF) Ur Squamous Epith Cells (0-5/HPF) Urine Bacteria (None) Ur Culture Indicated? Fluid Color Yellow Fluid Appearance Slightly cloudy Fluid RBC 4149 /uL Fld Tot Nucleated Cell 721 /uL Fluid Polynuclear WBCs 8 % Fluid Mononuclear WBCs 92 % Fluid Eosinophils 0 % Fluid Other Cells 0 % Body Fluid Clot No clots present SARS-CoV-2 (PCR) (Negative) Discharge Plan Departure Patient Disposition: Home Clinical Impression: Acute knee pain Qualifiers: Laterality: left Qualified Code(s): M25.562 - Pain in left knee Instructions: DI for Knee Effusion, DI for Knee Pain Activity Restrictions/Additional Instructions: *You have been diagnosed with [left knee pain, no obvious injury, fluid does not suggest bleeding or infection in the joint] *What to do: *Please continue to take your regular medications as directed. [x ] New medication prescriptions sent to your pharmacy: [ [facility]] ] New medication written as a paper prescription [ ] No new medications given *Please follow up with your primary care provider in 2-3 days, call for an appointment. Let them know you were seen in the Emergency Department and that we ask that you be seen in follow up. We will electronically transmit a record of today's note if your PCP is in our system *If you do not have a primary care provider please contact the [facility] Resource line at [phone]. They will ask some questions about your medical history and help get you set up with a doctor in the community. *Return to Emergency Department if you should have any new, worsening or concerning symptoms, such as [fever greater than 101 F, shaking chills, worsenin g pain, persistent vomiting or other bothersome symptoms] Prescriptions: New hydrocodone-acetaminophen 5-325 mg tablet 1 tab PO Q4-6H PRN (Reason: pain) Qty: 10 RF: 0 No Action ASCORBIC ACID (VITAMIN C ER) 1,500 mg PO Q DAY Qty: 0 RF: 0 (DME) PT/OT Treat and Eval/Wheelchair Assessment Qty: 1 RF: 0 Eliquis 5 mg tablet 5 mg PO BID Qty: 60 RF: 3 amlodipine [Norvasc] 5 mg tablet 5 mg PO BID Qty: 180 RF: 1 losartan 100 mg tablet See Rx Instructions .ROUTE .COMPLEX Qty: 90 RF: 0 atorvastatin 40 mg tablet See Rx Instructions .ROUTE .COMPLEX Qty: 90 RF: 0 carbamazepine 200 mg tablet See Rx Instructions .ROUTE .COMPLEX Qty: 90 RF: 0 phenobarbital 32.4 mg tablet See Rx Instructions .ROUTE .COMPLEX Qty: 60 RF: 0 atenolol 25 mg tablet 25 mg PO BID Qty: 180 RF: 1 Referrals: Bacilio Davila DO [Primary Care Provider] -
[2020-11-12 11:44] LABS: RBC Urine None Seen (0-5/HPF)
[2020-11-12 12:00] LABS: Appearance Urine UA SL CLOUDY; Bilirubin Urine UA NEGATIVE (NEGATIVE); Color Urine UA YELLOW; Glucose Urine UA NEGATIVE (Negative); Ketones Urine UA NEGATIVE (NEGATIVE); Leukocyte Esterase Urine UA NEGATIVE (NEGATIVE); Nitrite Urine UA NEGATIVE (Negative); Occult Blood Urine UA NEGATIVE (Negative); Protein Urine UA NEGATIVE (Negative); Urobilinogen Urine UA 0.2 E.U./dL (0.2)
[2020-11-12 12:02] LABS: pH Urine UA 7.5 (4.5-8.0)
[2020-11-12 12:03] LABS: Bacteria Urine Many (>30); Culture Indicated Urine Specimen Cultured; Squamous Epithelial Cell Urine 1-5 /HPF (0-5/HPF); WBC Urine 1-5/HPF (0-5/HPF)
[2020-11-12] MEDS: SODIUM CHLORIDE 0.9% 1,000 ML 125 ML IV (12:23)
[2020-11-12] MEDS: BUPIVACAINE 0.5% W/ EPI (PF) 30 ML VIAL 5 ML SUBCUT (12:26)
[2020-11-12 12:28] LABS: Add Manual Diff / Slide Review NO; Basophils Absolute Auto 0 /uL (0-100); Basophils Percent Auto 0.5 % (0-2); Eosinophils Absolute Auto 100 /uL (0-450); Eosinophils Percent Auto 1.4 % (2-4); Hematocrit 38.8 % (36-46); Hemoglobin 13.4 g/dL (12.0-16.0); Lymphocytes Absolute Auto 900 /uL (1100-4500); Lymphocytes Percent Auto 13.8 % (25-40); Mean Corpuscular HGB Conc 34.6 % (30-36); Mean Corpuscular Hemoglobin 30.5 PG (26-34); Monocytes Absolute Auto 300 /uL (0-900); Monocytes Percent Auto 4.9 % (3-14); Neutrophils Absolute Auto 4900 /uL (1500-7000); Neutrophils Percent Auto 79.4 % (50-75); Platelet Count 227 X10^3/uL (150-400); Red Cell Distribution Width 12.9 % (11.6-14.8); White Blood Cell Count 6.2 X10^3/uL (4.5-11.0)
[2020-11-12 13:13] LABS: C-Reactive Protein Quant 0.8 mg/dL (<1.0)
[2020-11-12 13:23] LABS: Erythrocyte Sedimentation Rate 14 MM/HR (0-20)
[2020-11-12 13:24] LABS: COVID19 - ADMIT (NP swab/PCR) Negative (Negative)
[2020-11-12 13:37] LABS: Body Fluid Appearance SLIGHTLY CLOUDY; Body Fluid Clotted? NO CLOTS PRESENT; Body Fluid Color YELLOW; Body Fluid Red Blood Cells 4149 /uL; Body Fluid Tot Nucleated Cells 721 /uL
[2020-11-12 13:38] LABS: Eosinophils Body Fluid 0 %; Mononuclear WBC Body Fluid 92 %; Other Cells Body Fluid 0 %; Polynuclear WBC Body Fluid 8 %
--- NOTE | 2020-11-12 14:09 | DI.RAD.S_ITS ---
PROCEDURE: XR KNEE LT 3V INDICATIONS: severe knee pain, won't stand TECHNIQUE: 3 views of the knee were acquired. COMPARISON: None. FINDINGS: Bones: No acute fracture seen, although suboptimal exam study sensitivity secondary to advanced arthritic changes. There is moderate to severe narrowing of the medial lateral joint spaces. Scattered degenerative subchondral sclerosis and spurring. Soft tissues: Scattered vascular calcifications. There is a moderate joint effusion. IMPRESSION: Severe joint degeneration. No fracture identified. Moderate joint effusion Dictated by: Carlos Lopez M.D. on 11/12/2020 at 15:50 Approved by: Carlos Lopez M.D. on 11/12/2020 at 15:51
--- NOTE | 2020-11-12 14:09 | DI.RAD.S_ITS ---
PROCEDURE: XR HIP W PEL IF DONE LT 2V INDICATIONS: severe pain TECHNIQUE: AP pelvis with lateral view(s) of the left hip(s). COMPARISON: None. FINDINGS: Bones: No definite acute fracture. Lumbar spondylosis and facet arthropathy. Moderate to severe bilateral hip joint degeneration. Soft tissues: The visualized bowel gas pattern is normal. No suspicious soft tissue calcifications. 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 on 11/12/2020 at 15:49 Approved by: Carlos Lopez M.D. on 11/12/2020 at 15:49
[2020-11-12 14:52] LABS: Creatine Kinase 61 U/L (30-135)
[2020-11-12 15:06] LABS: NT-proBNP (BNP-Adult 18+) 198 pg/mL (<450); Troponin I < 0.012 ng/mL (0.01-0.034)
[2020-11-12 15:49] LABS: Alanine Aminotransferase 23 IU/L (<35); Albumin 3.7 g/dL (3.5-5.0); Albumin Globulin Ratio 1.4 (1.0-2.8); Alkaline Phosphatase 129 U/L (38-126); Aspartate Aminotransferase 31 IU/L (14-36); BUN Creatinine Ratio 28.8 (6-22); Bilirubin Total 0.2 mg/dL (0.2-1.3); Blood Urea Nitrogen 15 mg/dL (7-17); Calcium 9.4 mg/dL (8.4-10.2); Carbon Dioxide 30 mmol/L (22-32); Chloride 92 mmol/L (98-107); Estimated Glomerular Filt Rate > 60.0 mL/min (>60); Globulin 2.6 g/dL (1.7-4.1); Glucose 102 mg/dL (80-110); HEMOLYSIS < 15 (0-50); Potassium 4.6 mmol/L (3.4-5.1); Sodium 127 mmol/L (137-145); Total Protein 6.3 g/dL (6.3-8.2)
--- NOTE | 2020-11-23 07:30 | PC.NURSE ---
Late entry, Normal saline 500ml infused. stopped at time of discharge.
== END 2020-11-12 17:13 | disposition home or self-care (01) ==
LOC: ED 16:11 → AC 16:37
PROVIDERS: Emergency Provider Emergency Medicine; PCP Family Medicine; Referring Provider Emergency Medicine
DX: M25.562 Pain in left knee (principal); Z20.822 Contact with and (suspected) exposure to COVID-19
CPT/HCPCS: 20610; 36415; 73502; 73562; 80053; 81001; 82550; 83880; 84484; 85025; 85651; 86140; 87070; 87075; 87077; 87086; 87205; 87635; 89051; 96360; 96361; 99284; C9803

== ENCOUNTER 2020-11-13 08:07 | Observation (INO) | payer MEDICARE, OTHER, SELFPAY ==
[2020-11-13] VITALS (13 sets, daily range): BP systolic 124–181; BP diastolic 54–102; PULSE 61–74; RESP 14–23; TEMP 36.1–36.8; O2SAT 94–97; BMI 30.2
--- NOTE | 2020-11-13 08:08 | ED_ITS ---
HPI - Weakness General Chief complaint: Weakness Stated complaint: weakness Time Seen by Provider: 11/13/20 08:07 Source: patient and EMS Mode of arrival: EMS Limitations: no limitations History of Present Illness HPI Narrative: 84-year-old female nonsmoker with history of hypertension, hyperlipidemia, anticoagulated with prior stroke and right-sided deficits presents by EMS for evaluation of severe left leg pain for the past few days and increasing generalized weakness. She was seen and evaluated yesterday and found to be significantly weak and having tremendous pain in her left knee. She had a large effusion which was drained and patient had minimal improvement after which. She lives at home alone and uses a walker only to transfer, she is nonambulatory at baseline. Due to her increasing weakness, pain and inability to safely transfer we attempted to admit the patient yesterday and after extensive discussion between the family, hospitalist and myself we elected to allow patient and family did try and see how she can do at home with increased help in the family. She has not done terribly well and EMS was called a few hours after her discharge to help transfer her once and then again this morning. She has had no fever chills and denies any chest pain or shortness of breath. Related Data Home Medications Medication Instructions Recorded Confirmed ASCORBIC ACID (VITAMIN C ER) 1,500 mg PO Q DAY #0 11/28/10 09/13/20 Previous Rx's Medication Instructions Recorded PT/OT Treat and Eval/Wheelchair #1 each 03/17/19 Assessment apixaban 5 mg tablet 5 mg PO BID #60 tab 01/30/20 amlodipine 5 mg tablet 5 mg PO BID #180 tab 06/05/20 losartan 100 mg tablet See Rx Instructions .ROUTE 08/23/20 .COMPLEX #90 tab atenolol 25 mg tablet 25 mg PO BID #180 tab 09/13/20 atorvastatin 40 mg tablet See Rx Instructions .ROUTE 10/16/20 .COMPLEX #90 tab carbamazepine 200 mg tablet See Rx Instructions .ROUTE 10/29/20 .COMPLEX #90 tab phenobarbital 32.4 mg tablet See Rx Instructions .ROUTE 11/06/20 .COMPLEX #60 tab hydrocodone-acetaminophen 1 tab PO Q4-6H PRN #10 tab 11/12/20 Allergies Allergy/AdvReac Type Severity Reaction Status Date / Time lisinopril [LISINOPRIL] Allergy Mild Cough Verified 11/12/20 11:37 adhesive [ADHESIVE] Allergy Unknown (tape) Verified 11/12/20 11:37 codeine [CODEINE] Allergy Unknown Verified 11/12/20 11:37 phenytoin [PHENYTOIN] Allergy Unknown Verified 11/12/20 11:37 Review of Systems Constitutional Constitutional: Denies chills, Denies fatigue, Denies fever(s), Denies frequent falls, Denies lethargy and Denies weakness Eyes Eyes: Denies change in vision, Denies eye discharge, Denies irritation and Denies loss of vision ENT Ears, Nose, Mouth, and Throat: Denies change in voice, Denies dizziness, Denies neck pain, Denies sore throat and Denies throat swelling Cardiovascular Cardiovascular: Denies chest pain, Denies irregular heart rhythm, Denies lightheadedness, Denies palpitations, Denies dyspnea, Denies dyspnea on exertion and Denies orthopnea Respiratory Respiratory: Denies cough, Denies dyspnea, Denies dyspnea on exertion and Denies wheezing Gastrointestinal Gastrointestinal: Denies abdominal pain, Denies change in bowel habits, Denies diarrhea, Denies nausea and Denies vomiting Musculoskeletal Musculoskeletal: Denies neck pain and Denies numbness Integumentary/Breasts Skin/Breast: Denies pruritus, Denies erythema, Denies rash and Denies wounds Neurologic Neurologic: Denies behavioral changes, Denies confusion, Denies dizziness, D enies frequent falls, Denies loss of vision, Denies numbness and Denies weakness Psychiatric Psychiatric: Denies anxiety, Denies behavioral changes, Denies confusion, Denies depression, Denies homicidal ideation and Denies suicidal ideation Endocrine Endocrine: Denies fatigue, Denies flushing and Denies palpitations Hematologic/Lymphatic Hematologic/Lymphatic: Denies easy bruising Allergic/Immunologic Allergic/Immunologic: Denies urticaria, Denies throat swelling and Denies wheezing Patient History Medical History (Updated 11/12/20 @ 16:11 by Jose Giraldo DO) Carotid artery disease (Unknown) Cataracts, bilateral (~03/2012) Chronic UTI (Unknown) History of CVA (cerebrovascular accident) (2013) Hyperlipidemia (Unknown) Hypertension (Unknown) Myocardial infarction (Unknown) Osteopenia (2007) Pacemaker (~09/2011) Right sided weakness Seizure (Unknown) Seizures Surgical History History of permanent cardiac pacemaker placement (~09/2011) Hx of cataract surgery (03/2012) Hx of heart artery stent (2009) Hx of hysterectomy Hx of resection of meningioma (1984) Family History (Updated 08/16/19 @ 16:24 by Bacilio Davila DO) Father Alcoholism Sister Breast cancer Mother No problems noted. Social History Smoking Status: Never smoker Smoking Status: Never smoker Exam Initial Vital Signs Initial Vital Signs: Vital Signs Temperature 97.8 F 11/13/20 08:10 Pulse Rate 68 11/13/20 08:10 Respiratory Rate 19 11/13/20 08:10 Blood Pressure 181/77 H 11/13/20 08:10 Pulse Oximetry 97 11/13/20 08:10 Course Orders Ordered: ED Orders 11/13/20 08:09 EKG-12 Lead Stat 11/13/20 08:15 COVID19 - ADMIT ([employer]UCER swab/PCR) Stat 11/13/20 08:30 Complete Blood Count AUTO DIFF Stat Comprehensive Metabolic Panel Stat Magnesium Stat NT-proBNP (BNP-Adult 18+) Stat Troponin & CK Cardiac Panel Stat 11/13/20 08:58 Blood Culture Stat Sodium Chloride (Normal Saline 0.9%) 1,000 mls @ 125 mls/hr IV CONT CSASANDRA Last Admin: 11/13/20 08:45 Dose: 125 mls/hr Documented by: ADRIAN Vital Signs Vital signs: Vital Signs - 8 hr 11/13/20 08:10 Temperature 97.8 F Pulse Rate 68 Respiratory Rate 19 Blood Pressure 181/77 H Pulse Oximetry 97 MDM - Weakness Lab Data Result diagrams: 11/13/20 08:30 11/13/20 08:30 Labs: Lab Results 11/13/20 11/13/20 11/13/20 Range/Units 08:15 08:30 08:30 WBC 8.2 (4.5-11.0) X10^3/uL RBC 4.28 (4.0-5.2) X10^6/uL Hgb 13.0 (12.0-16.0) g/dL Hct 38.3 (36-46) % MCV 89.3 (80-100) fL MCH 30.4 (26-34) PG MCHC 34.0 (30-36) % RDW 12.9 (11.6-14.8) % Plt Count 221 (150-400) X10^3/uL Neut % (Auto) 80.9 H (50-75) % Lymph % (Auto) 9.5 L (25-40) % [place] % (Auto) 8.5 (3-14) % Eos % (Auto) 0.9 L (2-4) % Baso % (Auto) 0.2 (0-2) % Neut # (Auto) 6600 (7339-5991) /uL Lymph # (Auto) 800 L (2812-5464) /uL [place] # (Auto) 700 (0-900) /uL Eos # (Auto) 100 (0-450) /uL Baso # (Auto) 0 (0-100) /uL Sodium 130 L (137-145) mmol/L Chloride 93 L (98-107) mmol/L Carbon Dioxide 31 (22-32) mmol/L BUN 13 (7-17) mg/dL Creatinine 0.65 (0.52-1.04) mg/dL Estimated GFR > 60.0 (>60) mL/min BUN/Creatinine Ratio 20.0 (6-22) Glucose 114 H (80-110) mg/dL Calcium 9.4 (8.4-10.2) mg/dL Magnesium 1.8 (1.6-2.3) mg/dL Total Bilirubin 0.4 (0.2-1.3) mg/dL AST 29 (14-36) IU/L ALT 22 (<35) IU/L Alkaline Phosphatase 128 H (38-126) U/L Total Creatine Kinase 139 H (30-135) U/L Total Protein 6.7 (6.3-8.2) g/dL Albumin 3.8 (3.5-5.0) g/dL Globulin 2.9 (1.7-4.1) g/dL Albumin/Globulin Ratio 1.3 (1.0-2.8) SARS-CoV-2 (PCR) Negative (Negative) Discharge Plan Departure Prescriptions: No Action ASCORBIC ACID (VITAMIN C ER) 1,500 mg PO Q DAY Qty: 0 RF: 0 (DME) PT/OT Treat and Eval/Wheelchair Assessment Qty: 1 RF: 0 Eliquis 5 mg tablet 5 mg PO BID Qty: 60 RF: 3 amlodipine [Norvasc] 5 mg tablet 5 mg PO BID Qty: 180 RF: 1 losartan 100 mg tablet See Rx Instructions .ROUTE .COMPLEX Qty: 90 RF: 0 atorvastatin 40 mg tablet See Rx Instructions .ROUTE .COMPLEX Qty: 90 RF: 0 carbamazepine 200 mg tablet See Rx Instructions .ROUTE .COMPLEX Qty: 90 RF: 0 phenobarbital 32.4 mg tablet See Rx Instructions .ROUTE .COMPLEX Qty: 60 RF: 0 atenolol 25 mg tablet 25 mg PO BID Qty: 180 RF: 1 hydrocodone-acetaminophen 5-325 mg tablet 1 tab PO Q4-6H PRN (Reason: pain) Qty: 10 RF: 0
[2020-11-13] MEDS: SODIUM CHLORIDE 0.9% 1,000 ML 125 ML IV ×2 (08:45→18:12)
[2020-11-13 08:47] LABS: Add Manual Diff / Slide Review NO; Basophils Absolute Auto 0 /uL (0-100); Basophils Percent Auto 0.2 % (0-2); Eosinophils Absolute Auto 100 /uL (0-450); Eosinophils Percent Auto 0.9 % (2-4); Hematocrit 38.3 % (36-46); Lymphocytes Absolute Auto 800 /uL (1100-4500); Lymphocytes Percent Auto 9.5 % (25-40); Mean Corpuscular Hemoglobin 30.4 PG (26-34); Mean Corpuscular Volume 89.3 fL (80-100); Monocytes Absolute Auto 700 /uL (0-900); Monocytes Percent Auto 8.5 % (3-14); Neutrophils Absolute Auto 6600 /uL (1500-7000); Neutrophils Percent Auto 80.9 % (50-75); Platelet Count 221 X10^3/uL (150-400); Red Blood Cell Count 4.28 X10^6/uL (4.0-5.2); Red Cell Distribution Width 12.9 % (11.6-14.8); White Blood Cell Count 8.2 X10^3/uL (4.5-11.0)
[2020-11-13 08:59] LABS: Alanine Aminotransferase 22 IU/L (<35); Albumin 3.8 g/dL (3.5-5.0); Albumin Globulin Ratio 1.3 (1.0-2.8); Alkaline Phosphatase 128 U/L (38-126); Aspartate Aminotransferase 29 IU/L (14-36); Bilirubin Total 0.4 mg/dL (0.2-1.3); Blood Urea Nitrogen 13 mg/dL (7-17); Calcium 9.4 mg/dL (8.4-10.2); Carbon Dioxide 31 mmol/L (22-32); Chloride 93 mmol/L (98-107); Creatine Kinase 139 U/L (30-135); Estimated Glomerular Filt Rate > 60.0 mL/min (>60); Globulin 2.9 g/dL (1.7-4.1); Glucose 114 mg/dL (80-110); HEMOLYSIS < 15 (0-50); Magnesium 1.8 mg/dL (1.6-2.3); Sodium 130 mmol/L (137-145); Total Protein 6.7 g/dL (6.3-8.2)
[2020-11-13 09:08] LABS: COVID19 - ADMIT (NP swab/PCR) Negative (Negative)
[2020-11-13 09:10] LABS: Potassium 3.8 mmol/L (3.4-5.1); Troponin I < 0.012 ng/mL (0.01-0.034)
[2020-11-13 09:14] LABS: CKMB % Relative Index 0.8 % (1.5-5.0); Creatine Kinase MB 1.08 ng/mL (<2.37)
[2020-11-13 09:17] LABS: NT-proBNP (BNP-Adult 18+) 302 pg/mL (<450)
[2020-11-13 09:18] LABS: RBC Urine None Seen (0-5/HPF)
[2020-11-13 09:20] LABS: Appearance Urine UA CLOUDY; Bilirubin Urine UA NEGATIVE (NEGATIVE); Color Urine UA YELLOW; Glucose Urine UA NEGATIVE (Negative); Ketones Urine UA NEGATIVE (NEGATIVE); Leukocyte Esterase Urine UA 1+ (NEGATIVE); Nitrite Urine UA POSITIVE (Negative); Occult Blood Urine UA NEGATIVE (Negative); Protein Urine UA TRACE (Negative); Urobilinogen Urine UA 0.2 E.U./dL (0.2)
[2020-11-13 09:22] LABS: pH Urine UA 7.5 (4.5-8.0)
[2020-11-13 09:35] LABS: WBC Urine 5-10/HPF (0-5/HPF)
[2020-11-13 09:36] LABS: Bacteria Urine Many (>30); Culture Indicated Urine Specimen Cultured; Squamous Epithelial Cell Urine 0-1 /HPF (0-5/HPF)
--- NOTE | 2020-11-13 09:56 | PC.NURSE ---
pt with Cva, right arm contracted.
[2020-11-13] MEDS: CEFTRIAXONE 1 GM/50 ML FROZ.PIGGY IV (10:24)
--- NOTE | 2020-11-13 14:53 | PC.NURSE ---
Pt received from ER via stretcher at 1100 a.m. VSS, afebrile. R upper arm contracted, minimal movement to BLE's L slightly sore in knee region from drainage in ER previous day. Pt toelrating IV ceftriaxone well. Calling frequently for bed sears voiding small amounts and requesting bedpan for a BM. Small hard stool and odorous urine with sediment. Pt refuses to have an order received for Suppository stating she is sensitive to those things. NS @ 125ml/hr. Patient A&Ox3, forgetful of exact day, knowledgeable of medications. Unable to review as pt requesting privacy frequently using bedpans. She states her daughter has her list as well.
--- NOTE | 2020-11-13 17:37 | PC.NURSE ---
Addendum entered by Leti Castillo R.N. 11/13/20 22:13: Denies pain. Frequently calls for staff to assist with brief change or bedpan placement. Incontinent and continent of urine and stool. Taking oral fluids well and meds without difficulty. BL calf scd's in place. Addendum entered by Leti Castillo R.N. 11/13/20 18:17: Hospitalist in to see patient and pt's daughter. This caption writer informed MD pt was bladder scanned just prior to shift change for 67 cc's. Requesting bedpan approximately every 30 minutes. Pt denies any urinary symptoms, but does experience very frequent small voids. Mentation is appropriate. Able to make needs and wants known to staff and utilize call light. States left groin pain 02/11 and prefers tylenol only versus taking a narcotic @ this time. Original Note: Pt's home meds reconciled with pt and hospitalist informed pt desires home meds.
[2020-11-13] MEDS: ACETAMINOPHEN 325 MG TABLET 650 MG PO (18:12)
--- NOTE | 2020-11-13 20:06 | P.HP_ITS ---
History of Present Illness History of Present Illness Date Patient Seen: 11/13/20 Time Patient Seen: 17:06 Chief complaint: weakness Narrative: 84W with PMH HTN, HL, seizures s/p resection of meningioma, CAD, s/p PPM, hx of CVA with right sided deficits who presents worsening left leg pain. She was seen yesterday in the ED and found to be weaker than normal and had left knee pain. She had a large effusion drained in the ED. After this she was still having left leg discomfort. She lives at home alone and uses a walker only to transfer, she is nonambulatory at baseline. She was initially attempted to be admitted yesterday; however, patient decided after discussion with myself and ED physician that she wanted to go home. This was discussed with her daughter, who would provide help at home. However, after returning home EMS was called again because of her inability to transfer due to pain. She has had bilateral hip xray which shows moderate to severe osteoarthritis. Knee xray showed osteoarthritis and joint effusion. She denies any fevers, chills, shortness of breath. In the ED, workup was done she was noted to have normal vitals aside from a high blood pressure. Labs notable for mild hyponatremia at 130 which appears near baseline. Urine showed many bacteria and 5-10 WBCs. She was given IV antibiotics and admitted for further treatment. Patient History Medical History Carotid artery disease (Unknown) Cataracts, bilateral (~03/2012) Chronic UTI (Unknown) History of CVA (cerebrovascular accident) (2013) Hyperlipidemia (Unknown) Hypertension (Unknown) Myocardial infarction (Unknown) Osteopenia (2007) Pacemaker (~09/2011) Right sided weakness Seizure (Unknown) Seizures Surgical History History of permanent cardiac pacemaker placement (~09/2011) Hx of cataract surgery (03/2012) Hx of heart artery stent (2009) Hx of hysterectomy Hx of resection of meningioma (1984) Family & Social History Family History Father Alcoholism Sister Breast cancer Mother No problems noted. Social History: household members none Safety & Behavioral: Feels Safe in Current Yes Environment Been Physically Hurt or No Threatened By a Person Suicidal Ideation Description None Suicide Plan Description No Plan Tobacco & Substance use: Smoking Status Never smoker alcohol intake frequency 0-2 drinks per day Substance Use Type does not use Meds Home Medications and Allergies Home Medications Medication Instructions Recorded Confirmed Type ASCORBIC ACID (VITAMIN C ER) 1,500 mg PO Q DAY #0 11/28/10 11/13/20 History PT/OT Treat and Eval/Wheelchair #1 each 03/17/19 09/13/20 Rx Assessment apixaban 5 mg tablet 5 mg PO BID #60 tab 01/30/20 11/13/20 Rx amlodipine 5 mg tablet 5 mg PO BID #180 tab 06/05/20 11/13/20 Rx atenolol 25 mg tablet 25 mg PO BID #180 tab 09/13/20 11/13/20 Rx hydrocodone-acetaminophen 1 tab PO Q4-6H PRN #10 tab 11/12/20 11/13/20 Rx atorvastatin 40 mg PO BEDTIME 11/13/20 11/13/20 History carbamazepine 200 mg PO TID 11/13/20 11/13/20 History losartan 100 mg PO DAILY 11/13/20 11/13/20 History phenobarbital 64.8 mg PO BEDTIME 11/13/20 11/13/20 History Allergies Allergy/AdvReac Type Severity Reaction Status Date / Time lisinopril [LISINOPRIL] Allergy Mild Cough Verified 11/13/20 10:31 adhesive [ADHESIVE] Allergy Unknown (tape) Verified 11/13/20 10:31 codeine [CODEINE] Allergy Unknown Verified 11/13/20 10:31 phenytoin [PHENYTOIN] Allergy Unknown Verified 11/13/20 10:31 Review of Systems Review of Systems Narrative: 14 systems reviewed and negative aside from what is noted in HPI Exam Vital Signs (past 8 hours): - 11/13/20 16:05 Temperature 97.9 F Pulse Rate 73 Respiratory Rate 18 Blood Pressure 171/67 H Pulse Oximetry 96 Oxygen Delivery Method Room Air Oxygen Flow Rate 0 Narrative Exam Narrative: GENERAL: Well-nourished, well-developed patient, no distress HEAD: Atraumatic. Normocephalic. EYES: PERRL. Extraocular motions intact. ENT: moist mucous membranes NECK: Trachea midline. Non tender CARDIOVASCULAR: Regular rate and rhythm without murmurs RESPIRATORY: Clear to auscultation bilaterally No wheezes, rales, or rhonchi. GASTROINTESTINAL: Abdomen soft, non-tender, nondistended. Normal bowel sounds. No organomegaly EXTREMITIES: Left knee with effusion drained, no erythema, or warmth. No tenderness in foot, ankle or hip on this side. BACK: Nontender without deformity or crepitance. No flank tenderness. NEURO: AOx3. Right-sided weakness is chronic per patient SKIN: No rash noted Objective Labs Result Diagrams: 11/13/20 08:30 11/13/20 08:30 Labs: Laboratory Results - last 24 hr 11/13/20 11/13/20 11/13/20 08:15 08:30 08:30 WBC 8.2 RBC 4.28 Hgb 13.0 Hct 38.3 MCV 89.3 MCH 30.4 MCHC 34.0 RDW 12.9 Plt Count 221 Neut % (Auto) 80.9 H Lymph % (Auto) 9.5 L [place] % (Auto) 8.5 Eos % (Auto) 0.9 L Baso % (Auto) 0.2 Neut # (Auto) 6600 Lymph # (Auto) 800 L [place] # (Auto) 700 Eos # (Auto) 100 Baso # (Auto) 0 Sodium 130 L Potassium 3.8 Chloride 93 L Carbon Dioxide 31 BUN 13 Creatinine 0.65 Estimated GFR > 60.0 BUN/Creatinine Ratio 20.0 Glucose 114 H Calcium 9.4 Magnesium 1.8 Total Bilirubin 0.4 AST 29 ALT 22 Alkaline Phosphatase 128 H Total Creatine Kinase 139 H CK-MB (CK-2) 1.08 CK-MB (CK-2) Rel Index 0.8 L Troponin I < 0.012 NT-Pro-B Natriuret Pep 302 Total Protein 6.7 Albumin 3.8 Globulin 2.9 Albumin/Globulin Ratio 1.3 Urine Color Urine Appearance Urine pH Ur Specific [place] Urine Protein Urine Glucose (UA) Urine Ketones Urine Occult Blood Urine Nitrate Urine Bilirubin Urine Urobilinogen Ur Leukocyte Esterase Urine RBC Urine WBC Ur Squamous Epith Cells Urine Bacteria Ur Culture Indicated? SARS-CoV-2 (PCR) Negative 11/13/20 09:14 WBC RBC Hgb Hct MCV MCH MCHC RDW Plt Count Neut % (Auto) Lymph % (Auto) [place] % (Auto) Eos % (Auto) Baso % (Auto) Neut # (Auto) Lymph # (Auto) [place] # (Auto) Eos # (Auto) Baso # (Auto) Sodium Potassium Chloride Carbon Dioxide BUN Creatinine Estimated GFR BUN/Creatinine Ratio Glucose Calcium Magnesium Total Bilirubin AST ALT Alkaline Phosphatase Total Creatine Kinase CK-MB (CK-2) CK-MB (CK-2) Rel Index Troponin I NT-Pro-B Natriuret Pep Total Protein Albumin Globulin Albumin/Globulin Ratio Urine Color Yellow Urine Appearance Cloudy Urine pH 7.5 Ur Specific [place] 1.020 Urine Protein Trace H Urine Glucose (UA) Negative Urine Ketones Negative Urine Occult Blood Negative Urine Nitrate Positive H Urine Bilirubin Negative Urine Urobilinogen 0.2 Ur Leukocyte Esterase 1+ H Urine RBC None seen Urine WBC 5-10/hpf H Ur Squamous Epith Cells 0-1 /hpf Urine Bacteria Many (>30) H Ur Culture Indicated? Specimen cultured SARS-CoV-2 (PCR) Assessment & Plan Assessment & Plan narrative: Ms. Polanco is an 84W with above medical history who presents with leg pain, weakness, found to have UTI and osteoarthritis with joint effusion 1. Weakness - likely secondary due to pain, from osteoarthritis exacerbation with joint effusion, also UTI possibly contributing. Patient at baseline has chronic R side weakness but currently can not transfer from wheelchair and is living alone -treat UTI per below -treat osteoarthritis per below -PT/OT ordered 2. UTI - noted on UA -follow up urine cultures -ordered for ceftriaxone -plan for 3 day course of antibiotics 3. 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 Hx of CVA with R sided weakness -no evidence of any focal neurologic deficit -continue on home apixaban and atorvastatin 5. History of seizures s/p meningioma resection -continue home dose phenobarbital and carbamazepine 6. Hypertension -continue home dose atenolol, amlodipine, and losartan 7. CAD -no symptoms currently -continue home dose of statin Code status: Full, proxy is daughter Lorena Diet: Cardiac DVT ppx: on full dose lovenox, SCDs IVF: none Quality VTE Deep Vein Thrombosis/Pulmonary Embolism Present on Admission: No
[2020-11-13] MEDS: ATORVASTATIN 20 MG TABLET 40 MG PO (20:07)
[2020-11-13] MEDS: PHENobarbitaL 32.4 MG TABLET 64.8 MG PO (20:07)
[2020-11-13] MEDS: AMLODIPINE 5 MG TABLET PO (20:07)
[2020-11-13] MEDS: atenoloL 25 MG TABLET PO (20:07)
[2020-11-13] MEDS: PHENAZOPYRIDINE 100 MG TABLET PO (20:07)
[2020-11-13] MEDS: carBAMazepine 200 MG TABLET PO (20:07)
[2020-11-13] MEDS: APIXABAN 5 MG TABLET PO (20:07)
[2020-11-14 07:00] VITALS: O2SAT 92
[2020-11-14 07:34] LABS: BUN Creatinine Ratio 19.6 (6-22); Blood Urea Nitrogen 10 mg/dL (7-17); Calcium 8.7 mg/dL (8.4-10.2); Carbon Dioxide 30 mmol/L (22-32); Chloride 97 mmol/L (98-107); Estimated Glomerular Filt Rate > 60.0 mL/min (>60); Glucose 89 mg/dL (80-110); HEMOLYSIS < 15 (0-50); Potassium 4.1 mmol/L (3.4-5.1); Sodium 130 mmol/L (137-145)
[2020-11-14 07:37] LABS: Add Manual Diff / Slide Review NO; Basophils Absolute Auto 0 /uL (0-100); Basophils Percent Auto 0.2 % (0-2); Eosinophils Absolute Auto 200 /uL (0-450); Eosinophils Percent Auto 1.9 % (2-4); Hematocrit 35.4 % (36-46); Lymphocytes Absolute Auto 1200 /uL (1100-4500); Mean Corpuscular HGB Conc 33.9 % (30-36); Mean Corpuscular Hemoglobin 30.4 PG (26-34); Mean Corpuscular Volume 89.6 fL (80-100); Monocytes Absolute Auto 700 /uL (0-900); Monocytes Percent Auto 8.3 % (3-14); Neutrophils Absolute Auto 6700 /uL (1500-7000); Neutrophils Percent Auto 75.6 % (50-75); Platelet Count 206 X10^3/uL (150-400); Red Blood Cell Count 3.95 X10^6/uL (4.0-5.2); White Blood Cell Count 8.9 X10^3/uL (4.5-11.0)
[2020-11-14 08:00] VITALS: BP 147/60; PULSE 66; RESP 16; TEMP 36.4; O2SAT 92
[2020-11-14 08:30] VITALS: BP 140/73; PULSE 62
[2020-11-14] MEDS: LOSARTAN 50 MG TABLET 100 MG PO (08:30)
[2020-11-14] MEDS: AMLODIPINE 5 MG TABLET PO ×2 (08:30→20:37)
[2020-11-14] MEDS: PHENAZOPYRIDINE 100 MG TABLET PO ×3 (08:30→20:37)
[2020-11-14] MEDS: APIXABAN 5 MG TABLET PO (08:30)
[2020-11-14] MEDS: carBAMazepine 200 MG TABLET PO ×3 (08:30→20:36)
[2020-11-14] MEDS: ACETAMINOPHEN 325 MG TABLET 650 MG PO ×3 (08:31→20:37)
[2020-11-14] MEDS: atenoloL 25 MG TABLET PO ×2 (08:31→20:36)
[2020-11-14] MEDS: SODIUM CHLORIDE 0.9% FLUSH 10 ML IV ×2 (08:37→20:52)
[2020-11-14] MEDS: CEFTRIAXONE 1 GM/50 ML FROZ.PIGGY IV (10:33)
--- NOTE | 2020-11-14 12:40 | PT.IIE ---
Surgical History (Last Reviewed 11/13/20 @ 20:18 by Shaun Alonzo MD) History of permanent cardiac pacemaker placement (~09/2011) Hx of cataract surgery (03/2012) Hx of heart artery stent (2009) Hx of hysterectomy Hx of resection of meningioma (1984) Medical History (Last Reviewed 11/13/20 @ 20:18 by Shaun Alonzo MD) Carotid artery disease (Unknown) Cataracts, bilateral (~03/2012) Chronic UTI (Unknown) History of CVA (cerebrovascular accident) (2013) Hyperlipidemia (Unknown) Hypertension (Unknown) Myocardial infarction (Unknown) Osteopenia (2007) Pacemaker (~09/2011) Right sided weakness Seizure (Unknown) Seizures Physical Therapy Inpatient Evaluation/Re-Eval M1 PT/OT-IP Prior Functional Status Start: 11/14/20 08:57 Freq: NEEDED Status: Active Protocol: Document 11/14/20 12:40 AW (Rec: 11/14/20 13:32 AW [id number]) Medical Review Prior Functional Status Medical History Reviewed Yes Communication Pt is able to make her needs known. 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 Her RUE is contracted. She is not ambulatory. She uses a power wheelchair for mobility and is typically able to transfer without assist. She does admit to multiple falls. Activities of Daily Living and IADL's Pt reports independence with dressing. Her daughter, Lorena, assists with showersusing a shower chair. She received Meals on Wheels and does little cooking. Social History Household Members none Living Arrangements House Number of Floors (Floors) One Floor Number of Stairs To Enter/Railing? Ramped entry. Home Environment Standard Height Toilet,Ramp Home Equipment Front Wheel Walker,Manual Wheelchair,Power Wheelchair/ Scooter,Shower Seat with Backrest,Hand Held Shower,Lift Recliner,Grab Bars Near Toilet Additional Social History Comment Pt has a bed rail installed on the left side of her bed. Pt lives alone in [place]. Her daughter, Lorena, lives nearby and provides assist with transportation, ADL's, and some transfers when needed . M2 PT-IP Current Condition Start: 11/14/20 08:57 Freq: NEEDED Status: Active Protocol: Document 11/14/20 12:40 AW (Rec: 11/14/20 13:32 AW [id number]) Physical Therapy Current Condition Current Condition Evaluation Date 11/14/20 Treatment Diagnosis LLE pain, UTI, impaired mobility Onset Date 11/10/20 Precautions Other Precautions seizures M3 PT-IP Subjective Start: 11/14/20 08:57 Freq: NEEDED Status: Active Protocol: Document 11/14/20 12:40 AW (Rec: 11/14/20 13:32 AW [id number]) Subjective Physical Therapy Visit Type Type Initial Evaluation Visit Start Time 10:52 Visit Stop Time 12:40 Total Visit Minutes 53 Notes Pt seen for split visits 1052- 1130 and [id number]. Daughter, Lorena, was present at second visit. Number of TELECOMMUNICATIONS NETWORK ENGINEER Visits 0 Physical Therapy Visit Comments Patient Comments Pt is anxious and expresses doubts about her ability to transfer. Patient Goals Be able to transfer without assist. Therapy Pain Assessment Pain When Pain Assessed At Rest Pain Present Pain Present Pain Reported Location Left Groin Scale Used not quantified Pain Behaviors Guarding,[place] Pain Management Techniques Modification of Treatment,Re- positioning M4 PT-IP Mobility and Gait Start: 11/14/20 08:57 Freq: NEEDED Status: Active Protocol: Document 11/14/20 12:40 AW (Rec: 11/14/20 13:32 AW [id number]) PT-Bed Mobility Assessment Rolling Type of Rolling Roll to Left Level of Assist Minimal Assistance Supine to Sit Supine to Sit Moderate Assistance,1 Person Assistance Scooting Scooting to Edge of Bed Moderate Assistance Scooting Up and Down in Bed Dependent PT-Transfer Assessment Sit to and From Stand Sit to and from Stand Maximum Assistance,1 Person Assistance Equipment Transfer Assistive Device Gait Belt Transfers Transfer Destination Bed,Bedside Commode Transfer Technique Stand Pivot Transfer Ability Level of Assist Maximum Assistance,1 Person Assistance,Use of Upper Extremities Comments Mobility Comments Pt was reclined in the bed as PT arrived. BP 121/67 HR 71. Pt was doubtful about her ability to mobilize due to anterior left thigh pain. She states she has not been able to transfer since Wednesday. She needed total assist to don her shoes in bed. Pt agreed to attempt supine to sit. Rolling to her left side, pt had good awareness of her hemiparetic RUE. She required mod A x 1 to transition to sitting. She was able to support herself EOB but leaned to the right side. Pt normally sits on left EOB and reaches across with her left arm to contact her wheelchair and then turns 360 degrees to her right for transfer. Pt lacked the confidence to try this. With bed tilted toward the floor, pt was able to stand and pivot to the BSC set up on her right side max A x 1. She did not need to void, so transferred back to the bed in similar fashion. She needed min assist to complete sit to supine and was dependent for scooting up on the bed. Pt was left with call light and all needs in reach, bed alarm on for safety. Gait Assessment Comments Gait Comments Pt not ambulatory. Stair Climbing Assessment Comments Stair Climbing Comments Pt uses a ramp to access her house. PT-Balance Assessment Sitting Balance and Reactions Static Sitting Balance Ability Fair Dynamic Sitting Balance Ability Poor Standing Balance and Reactions Static Standing Balance Ability Poor Dynamic Standing Balance Ability Poor M5 PT-IP Objective Assessments Start: 11/14/20 08:57 Freq: NEEDED Status: Active Protocol: Document 11/14/20 12:40 AW (Rec: 11/14/20 13:32 AW [id number]) Orientation Orientation/Cognition Level of Alertness Alert Orientation Name,Day of Week,Place, Situation Language Function Ability Hard of Hearing Safety Awareness Understands Safety Issues Gross Range of Motion Upper Extremity ROM Assessment Right Impaired Impairments Contracted Lower Extremity ROM Assessment Within Functional Limits Strength Lower Extremity Strength Assessment Bilaterally Impaired Hip R 3+/5; L 3-/5 Knee B 3+/5 Ankle B 4/5 Sensation Assessment Sensation Gross Sensation Right UE Impaired,Right LE Impaired Light Touch Impaired Proprioception (Position) Impaired Muscle Tone Muscle Tone WNL No Muscle Tone Location Right Lower Extremity Type of Tone Extensor Severity of Tone Mild M6 PT-IP Treatment Start: 11/14/20 08:57 Freq: NEEDED Status: Active Protocol: Document 11/14/20 12:40 AW (Rec: 11/14/20 13:32 AW [id number]) Physical Therapy Treatment Education Education Provided Safety Other Treatments Other Treatment Performed Educated pt and her daughter on PT plan of care, level of assist currently required, and recommendation for 24/7 assist. M7 PT-IP Assessment and Plan Start: 11/14/20 08:57 Freq: NEEDED Status: Active Protocol: Document 11/14/20 12:40 AW (Rec: 11/14/20 13:32 AW [id number]) PT Summary Assessment and Plan Potential Rehabilitation Potential Fair Status of Condition at Evaluation Evolving Summary Impairments Pain,ROM,Strength,Balance, Sensation,Tone,Bed Mobility, Transfers,Gait Assessment Summary Nakita is an 84 yo woman seen for PT evaluation with admitting diagnosis of left lower extremity pain, UTI, and difficulty with transfers. PLOF: Pt has history of CVA with right hemiparesis. She is not ambulatory. She uses a power wheelchair for all mobility and is typically able to transfer herself with a modified stand pivot transfer. CLOF: Pt present with LLE pain and weakness limiting her ability to transfer herself safely, currently requiring max assist. Pt is not safe to discharge to her home independently. She will need 24/7 assist available for all mobility and would benefit from SNF rehab to improve strength and mobility independence. Pt states discharge to her daughter's home may also be an option. If not going to SNF, home health is recommended. Goals Bed Mobility Goal Contact Guard Assistance Transfer Goal Minimal Assistance Days to Meet Goals 10 Frequency of Treatment Frequency Of Treatment Once a Day Treatment Plan Physical Therapy Treatment Plan Bed Mobility Training,Transfer Training,Therapeutic Exercise ,Balance Retraining,Discharge Planning,Hot or Cold Pack, Neuromuscular Re-ed Other Recommendations and Next Treatment bed mobility; transfers; Focus caregiver training if going home Recommendations To Nursing Amount of Assist Needed Mechanical Lift Discharge Recommendations PT Discharge Recommendations SNF Rehab,Home vs SNF Other Discharge Recommendations SNF vs home with 24/7 and Transportation Needs at Discharge Wheelchair/Cabulance
--- NOTE | 2020-11-14 13:03 | CM.IDA ---
Addendum entered by AVIS Flores 11/14/20 14:57: Patient and dtr request referral to [facility]. Dtr will pay privately if this is required. Placed call to December at [facility], gave referral and requested contact w/dtr Lorena to review private payment quote. DC likely tomorrow, December reviewing now. Original Note: Initial DCP Assessment Note Patient is an 84 yo female, resident of [place]. Patient presented to the ED 11.12.20 for LE injury, sent home w/dtr assist, and returned to the ED d/t weakness and inability to self transfer. Patient admitted observation at this time for UTI and severe weakness PCP: Bacilio Davila Payer: YASHIRA/Amanda Met w/patient and her dtr/KERI Carrillo at bedside, introduced role. Patient lives alone, uses a power w/c at baseline, self transfers to/from bed, recliner and BR throughout the day. Patient lives a very sedentary life, per dtr. Patient receives meals on wheels M-F and warms up frozen meals over the w/e. Patient received some cg assist through [facility], Domestic Helper is Juliann Brady# [phone] ext [phone], before the COVID-19 pandemic. Patient asked cgs to stop coming once lock down occurred. Dtr drives patient, assists w/medication and finances, and stops in when she is able to assist. Dtr feels patient has been depressed for a few years and some of the medication she is on may be contributing (?) Dtr unsure how patient will be able to return home, we discussed current observation status and this PRODUCT TRAINER suggested 1. DC to SNF via private payment 2. DC home w/dtr to assist w/HH follow up Dtr understand patient will likely be DC tomorrow, d/t observation status...will return to room this afternoon to review options again, dtr reviewing w/patient now. Spoke w/Linda, PT- likely recommend SNF, patient hesitant to engage in therapy per Linda and requiring max assist AVIS Flores Discharge Planning/Care Management CM Discharge Assessment Start: 11/14/20 12:53 Freq: Status: Active Protocol: Document 11/14/20 12:53 MADDIE (Rec: 11/14/20 13:02 MADDIE [id number]) Discharge Planning Assessment Assigned Preschool Aide AVIS Ryan DPOA/Assigned Designee Name Lorena Sim, dtmya Contact Information [phone] Advance Directives? No Advance Directives on File No History Provided By Patient,Family Member Comment Patient seen and sent home from the ER 11.12.20, returned d/t inability to self transfer . Prior Living Arrangements House Household Members none Type of transporation used prior to Relies on Others admit Independent with ADL's No Is patient alert and oriented? Yes: Although somewhat difficult to assess Needs Assistance With Grooming,Meal Prep,Managing Medications,Home Chores / Shopping Community Services used prior to Home Health Nurse,Home admission: Delivered Meals Patient/Family Preference Home with Home Health Comment Dtr thinking about Dispo options and will discuss SNF ( private payment) vs taking patient home w/ HH Barriers to Discharge Yes Comment Unable to self transfer, lives alone Medicare Choice List Provided Yes SNF/HH Preference [facility], no HH agency preference Has Agency SNF been contacted No Review Status In Process
[2020-11-14] MEDS: AMOXICILLIN 250 MG CAPSULE 500 MG PO ×2 (13:39→16:19)
--- NOTE | 2020-11-14 14:40 | PC.NURSE ---
Pt A&Ox3, slightly [place]. Denies cough, SOB. VSS, afebrile. Able to assist to turn in bed, calling for bed sears frequently. R arm with contractions and BLE's with weakness. Able to transfer with PT today max assist x1. Plan for SNF vs 24 home health at home. IV antibiotics switched to PO antibiotics. Pt tolerating well. Daughter at bedside this afternoon. No complaints. Continue monitoring.
--- NOTE | 2020-11-14 15:36 | DI.CT.S_ITS ---
PROCEDURE: CT PEL WO CON INDICATIONS: left hip pain TECHNIQUE: Noncontrast 3 mm axial sections acquired through the bony pelvis, with coronal and sagittal reformatting. COMPARISON: [facility], CR, XR HIP W PEL IF DONE LT 2V, 11/12/2020, 14:11. FINDINGS: Image quality: Excellent. Bones: No acute fracture seen. Diffuse osteopenia. Spondylitic changes and a presumed vertebral body hemangioma seen on image 2/2. Moderate bilateral hip osteoarthritis Soft tissues: Diffuse enlargement of the left iliopsoas muscle, with high attenuation focus seen on image 84/3 measuring 2.9 x 1.9 cm presumably intramuscular hematoma. There is surrounding inflammatory fat stranding. Scattered vascular calcifications are noted. Incidental colonic diverticulosis. Remaining intrapelvic contents unremarkable. IMPRESSION: Diffuse enlargement of the left iliopsoas muscle, with areas of increased attenuation highly suspicious for hematoma with associated edema, and surrounding inflammatory stranding. Recommend clinical follow-up to document resolution after treatment and exclude underlying hemorrhagic mass. Recommend clinical and laboratory correlation to exclude underlying infection. No acute fracture seen. Dictated by: Carlos Lopez M.D. on 11/14/2020 at 16:04 Approved by: Carlos Lopez M.D. on 11/14/2020 at 16:10
[2020-11-14 16:00] VITALS: BP 143/60; PULSE 61; RESP 17; TEMP 36.4; O2SAT 93
--- NOTE | 2020-11-14 16:44 | PC.NURSE ---
Addendum entered by Leti Castillo R.N. 11/14/20 19:55: Pt c/o pain at iv site with penicillin infusion. Site checked and rate of pcn infusion slowed with normal saline @ 21 cc/hr infusing currently. Pt continues to state painful and so iv dc'd and restarted at new site with pt consent. Site is intact with brisk blood return and flushing without difficulty. IV infusion resumed currently with normal saline infusing concurrently. Original Note: Pt to CT scan @ beginning of shift and returned short time later. LACE INSPECTOR provides pericare and linen change for pt's urinary incontinence. Now awake and alert sitting in upright position in bed. Dr. Alonzo in to see patient and discuss findings of CT scan. Informs pt of bleed into muscle left hip causing pain. Holding eliquis. Pt denies hip pain @ rest and refuses offer for ice pack. Slight edema to left knee. BL calf scd's in place. Right sided neglect s/p old CVA. Bed alarm set for pt safety.
--- NOTE | 2020-11-14 17:44 | P.PN_ITS ---
Subjective Subjective Date Patient Seen: 11/14/20 Time Patient Seen: 08:45 Interval history: Today she continued to have left hip pain. Pain appeared out of proportion to osteoarthritis. CT hip was ordered which showed iliopsoas hematoma with inflammatory changes, no mass noted. She had no hypotension or significant anemia. She also is growing Aerococcus urinae in urine, still having dysuria. Exam Vital Signs (past 8 hours): - 11/14/20 16:00 Temperature 97.5 F L Pulse Rate 61 Respiratory Rate 17 Blood Pressure 143/60 H Pulse Oximetry 93 Oxygen Delivery Method Room Air Oxygen Flow Rate 0 Narrative Exam Narrative: GENERAL: Well-nourished, well-developed patient, no distress HEAD: Atraumatic. Normocephalic. EYES: PERRL. Extraocular motions intact. ENT: moist mucous membranes NECK: Trachea midline. Non tender CARDIOVASCULAR: Regular rate and rhythm without murmurs RESPIRATORY: Clear to auscultation bilaterally No wheezes, rales, or rhonchi. GASTROINTESTINAL: Abdomen soft, non-tender, nondistended. Normal bowel sounds. No organomegaly EXTREMITIES: Left knee with effusion drained, no erythema, or warmth. No tenderness in foot, ankle or hip on right side. Tenderness on left hip BACK: Nontender without deformity or crepitance. No flank tenderness. NEURO: AOx3. Right-sided weakness is chronic per patient SKIN: No rash noted Objective Labs Result Diagrams: 11/14/20 07:05 11/14/20 07:05 Labs: Laboratory Results - last 24 hr 11/14/20 11/14/20 07:05 07:05 WBC 8.9 RBC 3.95 L Hgb 12.0 Hct 35.4 L MCV 89.6 MCH 30.4 MCHC 33.9 RDW 13.0 Plt Count 206 Neut % (Auto) 75.6 H Lymph % (Auto) 14.0 L Cal[place]oun % (Auto) 8.3 Eos % (Auto) 1.9 L Baso % (Auto) 0.2 Neut # (Auto) 6700 Lymph # (Auto) 1200 [place]oun # (Auto) 700 Eos # (Auto) 200 Baso # (Auto) 0 Sodium 130 L Potassium 4.1 Chloride 97 L Carbon Dioxide 30 BUN 10 Creatinine 0.51 L Estimated GFR > 60.0 BUN/Creatinine Ratio 19.6 Glucose 89 Calcium 8.7 [facility] Medical History Carotid artery disease (Unknown) Cataracts, bilateral (~03/2012) Chronic UTI (Unknown) History of CVA (cerebrovascular accident) (2013) Hyperlipidemia (Unknown) Hypertension (Unknown) Myocardial infarction (Unknown) Osteopenia (2007) Pacemaker (~09/2011) Right sided weakness Seizure (Unknown) Seizures Surgical History History of permanent cardiac pacemaker placement (~09/2011) Hx of cataract surgery (03/2012) Hx of heart artery stent (2009) Hx of hysterectomy Hx of resection of meningioma (1984) Family History Father Alcoholism Sister Breast cancer Mother No problems noted. Social History (Updated 11/14/20 @ 15:43 by Alisha Chatman MA) household members: none Smoking Status: Never smoker alcohol intake: never substance use type: does not use Assessment & Plan Assessment & Plan narrative: Ms. Polanco is an 84W with history of CVA with R sided weakness, history of seizures, HTN, CAD, paroxysmal afib who presents with leg pain, weakness, found to have UTI and osteoarthritis with left knee joint effusion and spontaneous iliopsoas bleeding. 1. Iliopsoas bleed -patient notes no trauma to hip or leg -she is on apixaban -CT read shows hematoma, with surrounding inflammatory changes, per radiology can see this inflammatory change with blood, does not mean infectious -patient with no fevers, no white count, normal ESR, she has no erythema, no tenderness of palpation so think infection less likely 1. Weakness - likely secondary due to pain, from osteoarthritis exacerbation with joint effusion, also UTI possibly contributing. Patient at baseline has chronic R side weakness but currently can not transfer from wheelchair and is living alone -treat UTI per below -treat osteoarthritis per below -PT/OT ordered 2. UTI - noted on UA -follow up urine cultures showed aerococcus urinae -penicillin in the hospital -plan for dc on amoxicillin 500mg TID for total 7 day course 3. 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 Hx of CVA with R sided weakness -no evidence of any focal neurologic deficit -continue on home atorvastatin 5. History of seizures s/p meningioma resection -continue home dose phenobarbital and carbamazepine 6. Hypertension -continue home dose atenolol, amlodipine, and losartan 7. CAD -no symptoms currently -continue home dose of statin 8. Paroxysmal atrial fibrillation -holding apixaban for now given patient's hematoma Code status: Full, proxy is daughter Lorena Diet: Cardiac DVT ppx: on full dose lovenox, SCDs IVF: none Quality VTE Deep Vein Thrombosis/Pulmonary Embolism Present on Admission: No
[2020-11-14] MEDS: PENICILLIN G POTASSIUM 3,000,000 UNIT/50 ML FROZ.PIGGY 100 UNIT IV ×2 (18:40→22:39)
[2020-11-14] MEDS: ATORVASTATIN 20 MG TABLET 40 MG PO (20:37)
[2020-11-14] MEDS: PHENobarbitaL 32.4 MG TABLET 64.8 MG PO (20:37)
[2020-11-14 21:14] LABS: Creatine Kinase 171 U/L (30-135)
[2020-11-14 21:57] LABS: Hematocrit 32.7 % (36-46); Hemoglobin 11.1 g/dL (12.0-16.0)
[2020-11-14 22:21] LABS: Lactate (Lactic Acid) 0.6 mmol/L (0.7-2.1)
[2020-11-14 22:22] LABS: Alanine Aminotransferase 19 IU/L (<35); Albumin 2.9 g/dL (3.5-5.0); Albumin Globulin Ratio 1.2 (1.0-2.8); Alkaline Phosphatase 90 U/L (38-126); Aspartate Aminotransferase 28 IU/L (14-36); BUN Creatinine Ratio 31.3 (6-22); Blood Urea Nitrogen 15 mg/dL (7-17); Calcium 8.4 mg/dL (8.4-10.2); Carbon Dioxide 30 mmol/L (22-32); Chloride 97 mmol/L (98-107); Estimated Glomerular Filt Rate > 60.0 mL/min (>60); Globulin 2.4 g/dL (1.7-4.1); Glucose 99 mg/dL (80-110); HEMOLYSIS < 15 (0-50); Magnesium 1.8 mg/dL (1.6-2.3); Potassium 3.8 mmol/L (3.4-5.1); Sodium 130 mmol/L (137-145); Total Protein 5.3 g/dL (6.3-8.2)
[2020-11-14 22:26] LABS: Bilirubin Total < 0.1 mg/dL (0.2-1.3)
[2020-11-14] MEDS: SODIUM CHLORIDE 0.9% 250 ML 21 ML IV (22:51)
[2020-11-14 23:00] VITALS: O2SAT 93
[2020-11-15] VITALS: BP 139/61; PULSE 60; RESP 16; TEMP 36.1; O2SAT 93
[2020-11-15] MEDS: HYDROCODONE/ACET 5/325 TABLET 1 TAB PO ×2 (01:47→09:42)
[2020-11-15] MEDS: PENICILLIN G POTASSIUM 3,000,000 UNIT/50 ML FROZ.PIGGY 50 UNIT IV ×3 (02:28→11:00)
[2020-11-15 06:22] LABS: Add Manual Diff / Slide Review NO; Basophils Absolute Auto 0 /uL (0-100); Basophils Percent Auto 0.4 % (0-2); Eosinophils Absolute Auto 200 /uL (0-450); Eosinophils Percent Auto 3.4 % (2-4); Hematocrit 33.6 % (36-46); Hemoglobin 11.5 g/dL (12.0-16.0); Lymphocytes Absolute Auto 1600 /uL (1100-4500); Mean Corpuscular HGB Conc 34.1 % (30-36); Mean Corpuscular Hemoglobin 30.5 PG (26-34); Mean Corpuscular Volume 89.4 fL (80-100); Monocytes Absolute Auto 600 /uL (0-900); Monocytes Percent Auto 8.6 % (3-14); Neutrophils Absolute Auto 4600 /uL (1500-7000); Neutrophils Percent Auto 64.6 % (50-75); Platelet Count 200 X10^3/uL (150-400); Red Blood Cell Count 3.76 X10^6/uL (4.0-5.2); Red Cell Distribution Width 12.9 % (11.6-14.8); White Blood Cell Count 7.1 X10^3/uL (4.5-11.0)
[2020-11-15 06:38] LABS: Blood Urea Nitrogen 11 mg/dL (7-17); Calcium 8.6 mg/dL (8.4-10.2); Carbon Dioxide 30 mmol/L (22-32); Chloride 97 mmol/L (98-107); Creatine Kinase 95 U/L (30-135); Estimated Glomerular Filt Rate > 60.0 mL/min (>60); Glucose 90 mg/dL (80-110); HEMOLYSIS < 15 (0-50); Sodium 130 mmol/L (137-145)
[2020-11-15 06:40] LABS: C-Reactive Protein Quant 7.5 mg/dL (<1.0)
[2020-11-15 06:46] LABS: Erythrocyte Sedimentation Rate 32 MM/HR (0-20)
[2020-11-15 07:00] VITALS: O2SAT 93
[2020-11-15 07:57] VITALS: BP 143/65; PULSE 64; RESP 20; TEMP 36.7; O2SAT 95
--- NOTE | 2020-11-15 08:57 | P.DS_ITS ---
History of Present Illness History of Present Illness Chief complaint: weakness Narrative: 84W with PMH HTN, HL, seizures s/p resection of meningioma, CAD, s/p PPM, hx of CVA with right sided deficits who presents worsening left leg pain. She was seen yesterday in the ED and found to be weaker than normal and had left knee pain. She had a large effusion drained in the ED. After this she was still having left leg discomfort. She lives at home alone and uses a walker only to transfer, she is nonambulatory at baseline. She was initially attempted to be admitted yesterday; however, patient decided after discussion with myself and ED physician that she wanted to go home. This was discussed with her daughter, who would provide help at home. However, after returning home EMS was called again because of her inability to transfer due to pain. She has had bilateral hip xray which shows moderate to severe osteoarthritis. Knee xray showed osteoarthritis and joint effusion. She denies any fevers, chills, shortness of breath. In the ED, workup was done she was noted to have normal vitals aside from a high blood pressure. Labs notable for mild hyponatremia at 130 which appears near baseline. Urine showed many bacteria and 5-10 WBCs. She was given IV antibiotics and admitted for further treatment. Discharge Providers Provider Date of admission: 11/13/20 10:25 Discharge Date: 11/15/20 Primary care physician: Bacilio Davila DO Consults: 11/13/20 18:08 Consult to Physical Therapy Evaluate & Treat Comment: Physician Instructions: Evaluate and Treat 11/14/20 16:54 Consult to Dietitian, Adult Routine Comment: Reason For Exam: wheelchair bound/urinary incontinence. Discharge provider: Shaun Alonzo MD Summary Hospital Course Discharge Diagnosis: 1. Spontaneous Iliopsoas hematoma, small 2. UTI 3. Osteoarthritis of bilateral hip and left knee 4. Hx of CVA with R sided weakness 5. History of seizures s/p meningioma resection 6. Hypertension 7. CAD 8. Paroxysmal atrial fibrillation Hospital Course: Ms. Polanco is an 84W with history of CVA with R sided weakness, history of seizures, HTN, CAD, paroxysmal afib who presents with left leg pain. She initially noted left knee pain and had a joint effusion that was tapped. This did not show any evidence of infection. She tried to return home, but was unable to, so presented the next day with weakness from pain in her left groin. She was initially thought to have worsening of her osteoarthritis. She did get a CT scan of her hip for continued pain and was noted to have a small iliopsoas hematoma with surrounding enhancement of the muscle. I did speak with radiology, Dr. Lopez, about this finding who noted that infection could not be excluded. However, she had no fevers, elevated white count, and was hemodynamically stable making infection unlikely. Did also speak with radiology, Dr. Salgado, about possibility of drainage, but he noted that hematoma looked like clot and would not be drainable. Her pain did improve during her course here. She initially had a drop in her hemoglobin to 11.1, no tachycardia or hypotension. But on day of discharge her hemoglobin was rising to 11.5. In addition she was diagnosed with aerococcus urinae urinary tract infection, she was ordered for a seven day course of amoxicillin. She will be discharged to SNF given her inability to transfer. She will be off anticoagulation for one week. She was preferring to restart plavix instead of eliquis. Discussion on benefits of eliquis including lowering stroke risk, but side effect, possiblity of recurrent bleeding were discussed at length. She was preferring to restart plavix as opposed to eliquis Exam Vital Signs (past 8 hours): Oxygen Delivery Method Room Air Oxygen Flow Rate 0 Narrative Exam Narrative: GENERAL: Well-nourished, well-developed patient, no distress HEAD: Atraumatic. Normocephalic. EYES: PERRL. Extraocular motions intact. ENT: moist mucous membranes NECK: Trachea midline. Non tender CARDIOVASCULAR: Regular rate and rhythm without murmurs RESPIRATORY: Clear to auscultation bilaterally No wheezes, rales, or rhonchi. GASTROINTESTINAL: Abdomen soft, non-tender, nondistended. Normal bowel sounds. No organomegaly EXTREMITIES: Left knee with effusion drained, no erythema, or warmth. No tenderness in foot, ankle or hip on right side. No decreased sensation of legs. No tenderness to palpation of the left leg or grain, no mases or ecchymosis noted. BACK: Nontender without deformity or crepitance. No flank tenderness. NEURO: AOx3. Right-sided weakness is chronic per patient SKIN: No rash noted Objective Labs Result Diagrams: 11/15/20 06:10 11/15/20 06:10 Labs: Laboratory Results - last 24 hr 11/15/20 11/15/20 11/15/20 06:10 06:10 06:10 WBC 7.1 RBC 3.76 L Hgb 11.5 L Hct 33.6 L MCV 89.4 MCH 30.5 MCHC 34.1 RDW 12.9 Plt Count 200 Neut % (Auto) 64.6 Lymph % (Auto) 23.0 L [place] % (Auto) 8.6 Eos % (Auto) 3.4 Baso % (Auto) 0.4 Neut # (Auto) 4600 Lymph # (Auto) 1600 [place] # (Auto) 600 Eos # (Auto) 200 Baso # (Auto) 0 ESR 32 H Sodium Potassium Chloride Carbon Dioxide BUN Creatinine Estimated GFR BUN/Creatinine Ratio Glucose Calcium Total Creatine Kinase C-Reactive Protein 7.5 H 11/15/20 11/15/20 06:10 06:10 WBC RBC Hgb Hct MCV MCH MCHC RDW Plt Count Neut % (Auto) Lymph % (Auto) [place] % (Auto) Eos % (Auto) Baso % (Auto) Neut # (Auto) Lymph # (Auto) [place] # (Auto) Eos # (Auto) Baso # (Auto) ESR Sodium 130 L Potassium 4.0 Chloride 97 L Carbon Dioxide 30 BUN 11 Creatinine 0.50 L Estimated GFR > 60.0 BUN/Creatinine Ratio 22.0 Glucose 90 Calcium 8.6 Total Creatine Kinase 95 C-Reactive Protein [facility] Medical History Carotid artery disease (Unknown) Cataracts, bilateral (~03/2012) Chronic UTI (Unknown) History of CVA (cerebrovascular accident) (2013) Hyperlipidemia (Unknown) Hypertension (Unknown) Myocardial infarction (Unknown) Osteopenia (2007) Pacemaker (~09/2011) Right sided weakness Seizure (Unknown) Seizures Surgical History History of permanent cardiac pacemaker placement (~09/2011) Hx of cataract surgery (03/2012) Hx of heart artery stent (2009) Hx of hysterectomy Hx of resection of meningioma (1984) Family History Father Alcoholism Sister Breast cancer Mother No problems noted. Social History (Updated 11/14/20 @ 15:43 by Alisha Chatman MA) household members: none Smoking Status: Never smoker alcohol intake: never substance use type: does not use Discharge Plan Discharge Plan Patient Disposition: SNF Provider Discharge Comment: Ms. Polanco came in with a left leg pain. She had difficulty with transferring from wheelchair which she can usually do at [facility]. She is in wheelchair for an old stroke. She was found to have a left knee effusion which was drained and showed no infection. She also had a spontaneous bleed into her left iliopsoas muscle, likely from eliquis. This was stopped on discharge. It was discussed about restarting plavix vs taking eliquis. She has paroxysmal afib and a spontaneous bleed, and she does not like taking eliquis, so decided for now to take plavix instead. This can be restart at plavix 75mg daily on 11/20/20. She is aware this does not reduce stroke risk with the efficacy of eliquis. In addition she had aerococcus urinae in her urine and should take a 7 day course of antibiotics with amoxicillin which has 5 more days left to complete the course at time of discharge. She will be discharged to SNF. I certify the postop hospital correction care is medically necessary on a continuing basis for any conditions for which he/ she received care during this hospitalization.: Yes The receiving facility has agreed to accept transfer and provide medical treatment.: Yes Discharge orders & Medications Prescriptions: New acetaminophen 325 mg Tablet 650 mg PO Q6HR PRN (Reason: Fever/Mild Pain (1-3)) Qty: 10 RF: 0 hydrocodone-acetaminophen 5-325 mg Tablet 1 tab PO Q4H PRN (Reason: pain) Qty: 10 RF: 0 amoxicillin 500 mg capsule 500 mg PO Q8H Qty: 15 RF: 0 phenobarbital 32.4 mg Tablet 64.8 mg PO BEDTIME Qty: 10 RF: 0 Continued ASCORBIC ACID (VITAMIN C ER) 1,000 mg PO Q DAY Qty: 0 RF: 0 amlodipine [Norvasc] 5 mg tablet 5 mg PO BID Qty: 180 RF: 1 atenolol 25 mg tablet 25 mg PO BID Qty: 180 RF: 1 atorvastatin 40 mg tablet 40 mg PO BEDTIME RF: 0 carbamazepine 200 mg tablet 200 mg PO TID RF: 0 losartan 100 mg tablet 100 mg PO DAILY RF: 0 phenobarbital 32.4 mg tablet 64.8 mg PO BEDTIME RF: 0 hydrocodone-acetaminophen 5-325 mg tablet 1 tab PO Q4-6H PRN (Reason: pain) Qty: 10 RF: 0 Discontinued Eliquis 5 mg tablet 5 mg PO BID Qty: 60 RF: 3 No Action (DME) PT/OT Treat and Eval/Wheelchair Assessment Qty: 1 RF: 0 Follow up/Referrals: Bacilio Davila DO [Primary Care Provider] - Diet/Activity/Treatments Diet: Diet as Tolerated Discharge Data Primary Care Provider: Bacilio Davila Attending Provider: Shaun Alonzo VTE Deep Vein Thrombosis/Pulmonary Embolism Present on Admission: No MIPS - DC The patient has current or prior documentation of left ventricular ejection fraction (LVEF) less than 40%, or moderate or severely depressed left ventricular systolic function.: No
[2020-11-15 09:40] VITALS: BP 143/65; PULSE 64
[2020-11-15] MEDS: LOSARTAN 50 MG TABLET 100 MG PO (09:40)
[2020-11-15] MEDS: PHENAZOPYRIDINE 100 MG TABLET PO (09:40)
[2020-11-15] MEDS: carBAMazepine 200 MG TABLET PO (09:41)
[2020-11-15] MEDS: atenoloL 25 MG TABLET PO (09:41)
[2020-11-15] MEDS: SODIUM CHLORIDE 0.9% FLUSH 10 ML IV (09:42)
[2020-11-15] MEDS: AMLODIPINE 5 MG TABLET PO (09:42)
--- NOTE | 2020-11-15 10:36 | PT.IPTN ---
Physical Therapy Treatment Note M2 PT-IP Current Condition Start: 11/14/20 08:57 Freq: NEEDED Status: Active Protocol: Document 11/14/20 12:40 AW (Rec: 11/14/20 13:32 AW [id number]) Physical Therapy Current Condition Current Condition Evaluation Date 11/14/20 Treatment Diagnosis LLE pain, UTI, impaired mobility Onset Date 11/10/20 Precautions Other Precautions seizures M3 PT-IP Subjective Start: 11/14/20 08:57 Freq: NEEDED Status: Active Protocol: Document 11/15/20 09:06 CLB (Rec: 11/15/20 10:51 CLB [id number]) Subjective Physical Therapy Visit Type Type Treatment Note Visit Start Time 09:06 Visit Stop Time 10:36 Total Visit Minutes 29 Notes split treat 906-9:30 and 1031- 1036 Number of FILM CLEANER Visits 1 Physical Therapy Visit Comments Patient Comments Pt doesn't think she can transfer even with assist. Therapy Pain Assessment Pain When Pain Assessed During Mobility Pain Present Pain Present Pain Reported M4 PT-IP Mobility and Gait Start: 11/14/20 08:57 Freq: NEEDED Status: Active Protocol: Document 11/15/20 09:06 CLB (Rec: 11/15/20 10:51 CLB [id number]) PT-Bed Mobility Assessment Rolling Type of Rolling Roll to Left Level of Assist Minimal Assistance Supine to Sit Supine to Sit Maximum Assistance,1 Person Assistance Sit to Supine Sit to Supine Maximum Assistance,2 Person Assistance Scooting Scooting to Edge of Bed Maximum Assistance Scooting Up and Down in Bed Dependent PT-Transfer Assessment Sit to and From Stand Sit to and from Stand Maximum Assistance,1 Person Assistance Equipment Transfer Assistive Device Gait Belt Transfers Transfer Destination Bed,Chair Transfer Technique Stand Pivot Transfer Ability Level of Assist Maximum Assistance,1 Person Assistance,Use of Upper Extremities Comments Mobility Comments Pt in bed with daughter at bedside. Pt educated on transfering to left. Bed tilted to 5 degrees. Pt required Max A for bed mobility to EOB, FILM CLEANER assisted pt with donning shoes. Pt stood Max A reaching with left arm to arm on chair pt took small steps to chair. Pt left in chair with all needs within reach and daughter Lorena present. Pt required Max A to scoot back in chair. Pt requested to return to bed PROGRAM PROPOSALS COORDINATOR notified FILM CLEANER. Pt able to scoot to EOC then required Max A to stand and pivot to bed. Pt then required assist doffing shoes then required Max A x2 sit to supine and dependent x2 with use of draw sheet towards HOB. Pt left in room with PROGRAM PROPOSALS COORDINATOR present. Gait Assessment Comments Gait Comments Pt not ambulatory. Stair Climbing Assessment Comments Stair Climbing Comments Pt uses a ramp to access her house. M5 PT-IP Objective Assessments Start: 11/14/20 08:57 Freq: NEEDED Status: Active Protocol: Document 11/14/20 12:40 AW (Rec: 11/14/20 13:32 AW [id number]) Orientation Orientation/Cognition Level of Alertness Alert Orientation Name,Day of Week,Place, Situation Language Function Ability Hard of Hearing Safety Awareness Understands Safety Issues Gross Range of Motion Upper Extremity ROM Assessment Right Impaired Impairments Contracted Lower Extremity ROM Assessment Within Functional Limits Strength Lower Extremity Strength Assessment Bilaterally Impaired Hip R 3+/5; L 3-/5 Knee B 3+/5 Ankle B 4/5 Sensation Assessment Sensation Gross Sensation Right UE Impaired,Right LE Impaired Light Touch Impaired Proprioception (Position) Impaired Muscle Tone Muscle Tone WNL No Muscle Tone Location Right Lower Extremity Type of Tone Extensor Severity of Tone Mild M6 PT-IP Treatment Start: 11/14/20 08:57 Freq: NEEDED Status: Active Protocol: Document 11/14/20 12:40 AW (Rec: 11/14/20 13:32 AW [id number]) Physical Therapy Treatment Education Education Provided Safety Other Treatments Other Treatment Performed Educated pt and her daughter on PT plan of care, level of assist currently required, and recommendation for 25/01 assist. M7 PT-IP Assessment and Plan Start: 11/14/20 08:57 Freq: NEEDED Status: Active Protocol: Document 11/15/20 09:06 CLB (Rec: 11/15/20 10:51 CLB [id number]) PT Summary Assessment and Plan Potential Rehabilitation Potential Fair Status of Condition at Evaluation Evolving Summary Impairments Pain,ROM,Strength,Balance, Sensation,Tone,Bed Mobility, Transfers,Gait Assessment Summary Pt requires Max A for all bed mobility and transfers at this time. Pt is hesitant to transfer for fear of falling. Pt c/o LLE pain during mobility. Pt will require SNF rehab to increase strength to improve ability for independent transfers. Goals Bed Mobility Goal Contact Guard Assistance Transfer Goal Minimal Assistance Days to Meet Goals 10 Frequency of Treatment Frequency Of Treatment Once a Day Treatment Plan Physical Therapy Treatment Plan Bed Mobility Training,Transfer Training,Therapeutic Exercise ,Balance Retraining,Discharge Planning,Hot or Cold Pack, Neuromuscular Re-ed Recommendations To Nursing Amount of Assist Needed Mechanical Lift Discharge Recommendations PT Discharge Recommendations SNF Rehab Transportation Needs at Discharge Wheelchair/Cabulance
--- NOTE | 2020-11-15 11:46 | CM.DPNOTE ---
Faxed PASRR, scripts and med list to [facility] per Gunjan. Received fax confirmation. Heather Bruce CM Asst.
--- NOTE | 2020-11-15 14:00 | CM.DPNOTE ---
Addendum entered by Lali Conklin, AVIS 11/15/20 14:11: w/c transport arranged for p/u at approx. 1345, RN Holly made aware, nurse report called to HAVEN Barrett at [facility] Original Note: DC Note DC as planned today- to [facility] via w/c. Private payment provided by luna Carrillo DC ppk faxed by CATHY Romero, completed and signed med list, Rx and completed PASRR to [facility] Plan: DC to [facility] via w/c today, private payment required d/t observation status, reviewed and confirmed by EHR JW
--- NOTE | 2020-11-15 14:17 | PC.NURSE ---
Pt A&Ox3. VSS, afebrile. rounding on patient this a.m. with interdisciplinary care team clearing patient for discharge to SNF this a.m..Daughter Serenity at bedside discussed resuming eloquis vs plavix after holding for a few days. Pt preferred to resume plavix,and follow up with her case therapist. She reports minimal pain this shift to L thigh. Medicated for generalized pain with PRN norco 1 tab with good effect. Pt recieved IV antibiotics. Tolerating therapy and po intake well. Still with frequent voids, organge colored urine, denies burning, spasms or pain to bladder. Report called by nurse to Nena at [facility]. Facility designee arrived to transport patient with all of belongings, prescription, discharge packet via wheel chair at 1340.
--- NOTE | 2020-11-21 20:11 | PC.NURSE ---
Late Entry; Rocephin infusion initiated 11/14 at 10:33, complete 11:04.
== END 2020-11-15 13:40 ==
LOC: ED 10:16 → AC 10:25
PROVIDERS: Nurse Practitioner Family; Admitting Provider Internal Medicine; Emergency Provider Emergency Medicine; PCP Family Medicine; Referring Provider Emergency Medicine; Visit Provider Internal Medicine
DX: M79.81 Nontraumatic hematoma of soft tissue (principal); N39.0 Urinary tract infection, site not specified; B96.89 Other specified bacterial agents as the cause of diseases classified elsewhere; I48.0 Paroxysmal atrial fibrillation; I69.351 Hemiplegia and hemiparesis following cerebral infarction affecting right dominant side; R26.2 Difficulty in walking, not elsewhere classified; M16.0 Bilateral primary osteoarthritis of hip; I10 Essential (primary) hypertension; E78.5 Hyperlipidemia, unspecified; M17.12 Unilateral primary osteoarthritis, left knee; G40.802 Other epilepsy, not intractable, without status epilepticus; I25.10 Atherosclerotic heart disease of native coronary artery without angina pectoris; Z79.01 Long term (current) use of anticoagulants; Z95.0 Presence of cardiac pacemaker; Z20.822 Contact with and (suspected) exposure to COVID-19
CPT/HCPCS: 36415; 72192; 80048; 80053; 81001; 82550; 82553; 83605; 83735; 83880; 84484; 85014; 85018; 85025; 85651; 86140; 87040; 87077; 87086; 87635; 93005; 93010; 96361; 96365; 96375; 97162; 97530; 97535; 99284; C9803; G0378; J2540

== ENCOUNTER → 2020-12-18 07:54 | Outpatient (ROUT) | payer MEDICARE, OTHER, SELFPAY ==
[2020-11-13 10:26] VITALS: BMI 30.2
[2020-12-18 08:31] LABS: Add Manual Diff / Slide Review NO; Basophils Absolute Auto 0 /uL (0-100); Basophils Percent Auto 0.3 % (0-2); Eosinophils Absolute Auto 100 /uL (0-450); Eosinophils Percent Auto 1.7 % (2-4); Hemoglobin 12.3 g/dL (12.0-16.0); Lymphocytes Absolute Auto 1500 /uL (1100-4500); Lymphocytes Percent Auto 20.3 % (25-40); Mean Corpuscular HGB Conc 33.4 % (30-36); Mean Corpuscular Hemoglobin 29.9 PG (26-34); Mean Corpuscular Volume 89.8 fL (80-100); Monocytes Absolute Auto 400 /uL (0-900); Monocytes Percent Auto 5.7 % (3-14); Neutrophils Absolute Auto 5400 /uL (1500-7000); Platelet Count 240 X10^3/uL (150-400); Red Blood Cell Count 4.12 X10^6/uL (4.0-5.2); Red Cell Distribution Width 13.3 % (11.6-14.8); White Blood Cell Count 7.5 X10^3/uL (4.5-11.0)
[2020-12-18 08:42] LABS: Alanine Aminotransferase 21 IU/L (<35); Albumin Globulin Ratio 1.1 (1.0-2.8); Alkaline Phosphatase 131 U/L (38-126); Aspartate Aminotransferase 30 IU/L (14-36); BUN Creatinine Ratio 29.1 (6-22); Bilirubin Total 0.2 mg/dL (0.2-1.3); Blood Urea Nitrogen 16 mg/dL (7-17); Calcium 9.4 mg/dL (8.4-10.2); Carbon Dioxide 31 mmol/L (22-32); Chloride 95 mmol/L (98-107); Estimated Glomerular Filt Rate > 60.0 mL/min (>60); Globulin 2.7 g/dL (1.7-4.1); Glucose 91 mg/dL (80-110); HEMOLYSIS < 15 (0-50); Potassium 4.6 mmol/L (3.4-5.1); Sodium 128 mmol/L (137-145); Total Protein 5.7 g/dL (6.3-8.2)
[2020-12-18 09:21] LABS: Thyroid Stimulating Hormone 2.19 uIU/mL (0.47-4.68)
[2020-12-18 10:15] LABS: Vitamin B12 477 pg/mL (239-931)
[2020-12-19 02:11] LABS: Carbamazepine Tegretol Level 8.3 ug/mL (4.0-12.0)
== END ==
PROVIDERS: PCP Family Medicine; Visit Provider Nurse Practitioner Family
DX: G40.909 Epilepsy, unspecified, not intractable, without status epilepticus (principal); E87.8 Other disorders of electrolyte and fluid balance, not elsewhere classified; R53.83 Other fatigue; E88.09 Other disorders of plasma-protein metabolism, not elsewhere classified
CPT/HCPCS: 36415; 80053; 80156; 80184; 82607; 84443; 85025

== ENCOUNTER 2020-12-24 10:59 | Emergency (ER) | payer MEDICARE, OTHER, SELFPAY ==
[2020-11-13 10:26] VITALS: BMI 30.2
[2020-12-24] VITALS (16 sets, daily range): BP systolic 154–205; BP diastolic 71–132; PULSE 60–66; RESP 14–23; TEMP 36.5; O2SAT 92–97
--- NOTE | 2020-12-24 11:10 | DI.RAD.S_ITS ---
PROCEDURE: XR ANKLE LT MIN 3V INDICATIONS: fall TECHNIQUE: 3 views of the ankle were acquired. COMPARISON: [facility], CR, XR FOOT LT MIN 3V, 12/24/2020, 11:25. [facility], CR, ANKLE 3 VIEWS RIGHT, 12/18/2009, 17:44. FINDINGS: Bones: There are moderately displaced fractures of the medial malleolus and distal fibula. A suspected mildly depressed fracture of the tibial plafond is also noted. No displaced fracture of the posterior malleolus. Soft tissues: There is periarticular soft tissue swelling. IMPRESSION: 1. Bimalleolar fracture of the left ankle. 2. Suspected mildly depressed fracture of the tibial plafond. Dictated by: Bobby Ortez M.D. on 12/24/2020 at 12:02 Approved by: Bobby Ortez M.D. on 12/24/2020 at 12:09
--- NOTE | 2020-12-24 11:23 | DI.RAD.S_ITS ---
PROCEDURE: XR FOOT LT MIN 3V INDICATIONS: fall TECHNIQUE: 3 views of the foot were acquired. COMPARISON: [facility], CR, XR ANKLE LT MIN 3V, 12/24/2020, 11:22. FINDINGS: Bones: Evaluation limited by suboptimal positioning. There is a mildly displaced fracture on the dorsal aspect of the medial cuneiform. There is malalignment at the base of 2nd tarsometatarsal joint. Fractures of the medial and lateral malleoli are demonstrated as seen on the concurrent study of the ankle. Soft tissues: There is soft tissue swelling within the medial midfoot. IMPRESSION: 1. Fractures of the medial midfoot with subluxation of the 2nd tarsometatarsal joint suspicious for Lisfranc ligament injury. 2. Fractures of the medial and lateral malleoli redemonstrated in the ankle as seen on the concurrent study. Dictated by: Bobby Ortez M.D. on 12/24/2020 at 12:20 Approved by: Bobby Ortez M.D. on 12/24/2020 at 12:37
--- NOTE | 2020-12-24 11:37 | ED.LOWEXIN ---
HPI - Extremity Injury (Lower) General Chief Complaint: Extremity Injury, Lower Stated Complaint: Fall wednesday Time Seen by Provider: 12/24/20 11:20 Source: patient and EMS Mode of arrival: EMS History of Present Illness HPI Narrative: Patient had assisted fall at alf across the parking lot. Denies hitting her head. Only complains of left ankle pain. Last meal was at breakfast. Denies any recent illness. Patient denies any chest pain headache palpitations prior to falling. Patient had lost her balance. Related Data Home Medications Medication Instructions Recorded Confirmed ASCORBIC ACID (VITAMIN C ER) 1,000 mg PO Q DAY #0 11/28/10 11/14/20 atorvastatin 40 mg PO BEDTIME 11/13/20 11/13/20 carbamazepine 200 mg PO TID 11/13/20 11/13/20 phenobarbital 64.8 mg PO BEDTIME 11/13/20 11/13/20 Previous Rx's Medication Instructions Recorded PT/OT Treat and Eval/Wheelchair #1 each 03/17/19 Assessment amlodipine 5 mg tablet 5 mg PO BID #180 tab 06/05/20 atenolol 25 mg tablet 25 mg PO BID #180 tab 09/13/20 hydrocodone-acetaminophen 1 tab PO Q4-6H PRN #10 tab 11/12/20 acetaminophen 650 mg PO Q6HR PRN #10 tab 11/15/20 amoxicillin 500 mg PO Q8H #15 cap 11/15/20 hydrocodone-acetaminophen 1 tab PO Q4H PRN #10 tab 11/15/20 phenobarbital 64.8 mg PO BEDTIME #10 tab 11/15/20 losartan 100 mg tablet 100 mg PO DAILY #90 tab 11/21/20 hydrocodone-acetaminophen 1 tab PO Q6H PRN #15 tab 12/24/20 Allergies Allergy/AdvReac Type Severity Reaction Status Date / Time lisinopril [LISINOPRIL] Allergy Mild Cough Verified 12/24/20 11:47 adhesive [ADHESIVE] Allergy Unknown (tape) Verified 12/24/20 11:47 codeine [CODEINE] Allergy Unknown Verified 12/24/20 11:47 phenytoin [PHENYTOIN] Allergy Unknown Verified 12/24/20 11:47 Review of Systems Review of Systems Narrative: GENERAL: Denies chills, fatigue, malaise, fever, sweats. HEENT: Denies sinus pain, ear pain, sore throat RESPIRATORY: Denies dyspnea, cough CARDIOVASCULAR: Denies chest pain, palpitations GASTROINTESTINAL: Denies nausea, vomiting, abdominal pain : Denies dysuria, frequency, hematuria MUSCULOSKELETAL: denies muscle complains of bony pain SKIN: Denies rash, skin lesions NEUROLOGIC: Denies weakness, numbness ROS Unobtainable: All systems reviewed & are unremarkable except as noted in HPI and below Patient History Medical History Carotid artery disease (Unknown) Cataracts, bilateral (~03/2012) Chronic UTI (Unknown) History of CVA (cerebrovascular accident) (2013) Hyperlipidemia (Unknown) Hypertension (Unknown) Myocardial infarction (Unknown) Osteopenia (2007) Pacemaker (~09/2011) Right sided weakness Seizure (Unknown) Seizures Surgical History History of permanent cardiac pacemaker placement (~09/2011) Hx of cataract surgery (03/2012) Hx of heart artery stent (2009) Hx of hysterectomy Hx of resection of meningioma (1984) Family History Father Alcoholism Sister Breast cancer Mother No problems noted. Social History household members: none Smoking Status: Never smoker alcohol intake: never substance use type: does not use Smoking Status: Never smoker alcohol intake frequency: 0-2 drinks per day Substance Use Type: does not use Exam Narrative Exam Narrative: GENERAL: in no distress, not toxic not dyspneic HEAD: Normocephalic. EYES: Pupils equal round No scleral icterus. ENT: Mucous membranes moist. NECK: Trachea midline. CARDIOVASCULAR: Regular rate and rhythm without murmurs RESPIRATORY: Clear to auscultation. Breath sounds equal bilaterally. No wheezes, rales, or rhonchi. GASTROINTESTINAL: Abdomen soft, non-tender EXTREMITIES: Examination left lower extremity. Nontender hip and knee. Foot is warm soft and pink with strong pedal pulse with light touch is intact to foot and toes. There is edema and bruising circumferentially to the left ankle with limited range of motion due to pain. NEURO: AOx3 SKIN: Warm and dry PSYCH: Not anxious, is cooperative Initial Vital Signs Initial Vital Signs: Vital Signs Temperature 97.7 F 12/24/20 11:06 Pulse Rate 65 12/24/20 11:06 Respiratory Rate 16 12/24/20 11:06 Blood Pressure 199/82 H 12/24/20 11:06 Pulse Oximetry 95 12/24/20 11:06 Procedures Orthopedic Splinting/Casting Injury #1: Side: left Lower Extremity Injury Location: ankle Lower Extremity Immobilizer: posterior splint Post splinting neuro exam: intact Post splinting vascular exam: intact Placed by: Nursing Course Course Course Narrative: No new issues during course of stay. Orders Ordered: ED Orders 12/24/20 11:10 XR ankle LT min 3V Stat 12/24/20 11:23 XR foot LT min 3V Stat 12/24/20 11:35 EKG-12 Lead Stat 12/24/20 11:55 Complete Blood Count AUTO DIFF Stat Comprehensive Metabolic Panel Stat Partial Thromboplastin Time Stat Prothrombin Time INR Stat 12/24/20 13:19 COVID19 - ADMIT (CERAMIC PAINTER swab/PCR) Stat 12/24/20 13:45 XR ankle LT min 3V Stat XR foot LT min 3V Stat 12/24/20 13:48 CT LE LT wo con Stat Discontinued Medications Morphine Sulfate (Morphine 4 Mg/Ml Inj) 4 mg IV NOW ONE Stop: 12/24/20 11:36 Last Admin: 12/24/20 12:01 Dose: 4 mg Documented by: ERUM Morphine Sulfate (Morphine 4 Mg/Ml Inj) 4 mg IV NOW ONE Stop: 12/24/20 15:21 Last Admin: 12/24/20 15:31 Dose: 4 mg Documented by: ERUM Ondansetron HCl (Ondansetron 4 Mg/2 Ml Inj) 4 mg IV NOW ONE Stop: 12/24/20 11:36 Last Admin: 12/24/20 12:01 Dose: 4 mg Documented by: ERUM Reevaluation(s) Reevaluation #1: Reviewed results and treatment plan with patient and daughter. They understand and agree. Pain is controlled. Splint applied. Patient to see Dr. Billings [facility] in the office tomorrow Time: 14:03 Reevaluation #2: I spoke with patient and daughter again. Explained to both them as well as daughter that orthopedist has given instructions for discharge home and follow-up in the office tomorrow. There was not criteria for orthopedics for admission tonight. She is at assisted living. Will have staff help her to the bathroom and mobility. Daughter is calling office with Orthopedics now to confirm office time tomorrow Time: 16:28 Consultations Consultation #1: Spoke with Dr. Asif, orthopedics. X-rays were reviewed. Instructed for repeat x-ray after splinting and also get CT scan. Patient to follow-up with Dr. Billings orthopedics tomorrow. Patient to be discharged home. Time: 13:34 Vital Signs Vital signs: Vital Signs - 8 hr 12/24/20 11:06 12/24/20 11:11 12/24/20 11:30 Temperature 97.7 F Pulse Rate 65 66 66 Respiratory Rate 16 Blood Pressure 199/82 H 175/78 H 201/80 H Pulse Oximetry 95 95 95 12/24/20 12:00 12/24/20 12:02 12/24/20 12:30 Temperature Pulse Rate 61 62 60 Respiratory Rate 20 19 15 Blood Pressure 205/86 H Pulse Oximetry 96 95 92 12/24/20 12:31 12/24/20 13:00 12/24/20 13:30 Temperature Pulse Rate 63 60 66 Respiratory Rate 15 14 20 Blood Pressure 166/72 H 170/72 H 182/132 H Pulse Oximetry 93 92 95 12/24/20 14:00 12/24/20 14:07 12/24/20 14:20 Temperature Pulse Rate 62 60 64 Respiratory Rate 17 15 23 Blood Pressure 189/82 H 167/72 H 156/73 H Pulse Oximetry 96 96 97 12/24/20 14:30 12/24/20 15:00 12/24/20 15:30 Temperature Pulse Rate 60 60 60 Respiratory Rate 15 14 15 Blood Pressure 154/72 H 162/72 H 159/71 H Pulse Oximetry 96 96 95 12/24/20 16:00 Temperature Pulse Rate 65 Respiratory Rate 15 Blood Pressure 156/97 H Pulse Oximetry 94 MDM - Extremity Injury (Lower) Differential Diagnosis Differential diagnosis: Likely ankle sprain and strain and ankle fracture Lab Data Attestation: I reviewed the patient's lab results. Result diagrams: 12/24/20 11:55 12/24/20 11:55 Labs: Lab Results 12/24/20 12/24/20 12/24/20 Range/Units 11:55 11:55 11:55 WBC 7.2 (4.5-11.0) X10^3/uL RBC 4.14 (4.0-5.2) X10^6/uL Hgb 12.4 (12.0-16.0) g/dL Hct 37.4 (36-46) % MCV 90.4 (80-100) fL MCH 30.0 (26-34) PG MCHC 33.2 (30-36) % RDW 13.6 (11.6-14.8) % Plt Count 258 (150-400) X10^3/uL Neut % (Auto) 72.5 (50-75) % Lymph % (Auto) 16.7 L (25-40) % Bryan % (Auto) 8.2 (3-14) % Eos % (Auto) 2.1 (2-4) % Baso % (Auto) 0.5 (0-2) % Neut # (Auto) 5200 (6477-2079) /uL Lymph # (Auto) 1200 (0776-1086) /uL Bryan # (Auto) 600 (0-900) /uL Eos # (Auto) 100 (0-450) /uL Baso # (Auto) 0 (0-100) /uL PT 11.3 (10.1-12.7) SECONDS INR 1.0 (0.9-1.3) APTT 30 (26.4-36.2) SECONDS Sodium 134 L (137-145) mmol/L Potassium 4.4 (3.4-5.1) mmol/L Chloride 97 L (98-107) mmol/L Carbon Dioxide 34 H (22-32) mmol/L BUN 11 (7-17) mg/dL Creatinine 0.59 (0.52-1.04) mg/dL Estimated GFR > 60.0 (>60) mL/min BUN/Creatinine Ratio 18.6 (6-22) Glucose 96 (80-110) mg/dL Calcium 9.2 (8.4-10.2) mg/dL Total Bilirubin 0.3 (0.2-1.3) mg/dL AST 23 (14-36) IU/L ALT 19 (<35) IU/L Alkaline Phosphatase 135 H (38-126) U/L Total Protein 6.2 L (6.3-8.2) g/dL Albumin 3.4 L (3.5-5.0) g/dL Globulin 2.8 (1.7-4.1) g/dL Albumin/Globulin Ratio 1.2 (1.0-2.8) SARS-CoV-2 (PCR) (Negative) 12/24/20 Range/Units 13:19 WBC (4.5-11.0) X10^3/uL RBC (4.0-5.2) X10^6/uL Hgb (12.0-16.0) g/dL Hct (36-46) % MCV (80-100) fL MCH (26-34) PG MCHC (30-36) % RDW (11.6-14.8) % Plt Count (150-400) X10^3/uL Neut % (Auto) (50-75) % Lymph % (Auto) (25-40) % Bryan % (Auto) (3-14) % Eos % (Auto) (2-4) % Baso % (Auto) (0-2) % Neut # (Auto) (4368-4721) /uL Lymph # (Auto) (1794-2056) /uL Bryan # (Auto) (0-900) /uL Eos # (Auto) (0-450) /uL Baso # (Auto) (0-100) /uL PT (10.1-12.7) SECONDS INR (0.9-1.3) APTT (26.4-36.2) SECONDS Sodium (137-145) mmol/L Potassium (3.4-5.1) mmol/L Chloride (98-107) mmol/L Carbon Dioxide (22-32) mmol/L BUN (7-17) mg/dL Creatinine (0.52-1.04) mg/dL Estimated GFR (>60) mL/min BUN/Creatinine Ratio (6-22) Glucose (80-110) mg/dL Calcium (8.4-10.2) mg/dL Total Bilirubin (0.2-1.3) mg/dL AST (14-36) IU/L ALT (<35) IU/L Alkaline Phosphatase (38-126) U/L Total Protein (6.3-8.2) g/dL Albumin (3.5-5.0) g/dL Globulin (1.7-4.1) g/dL Albumin/Globulin Ratio (1.0-2.8) SARS-CoV-2 (PCR) Negative (Negative) Imaging Data Extremity x-ray #1: Radiologist's Impression: [address] [id number] ReportSigned Patient: Nakita Polanco GMR#: [id number]: 7Acct:[id number]/Sex: 85 / FDate of Service: 12/24/20Loc: EDAccession Number: [id number] Procedure: XR ankle LT min 3V Ordering Provider: Gurdeep Jefferson MD PROCEDURE: XR ANKLE LT MIN 3V INDICATIONS: fall TECHNIQUE: 3 views of the ankle were acquired. COMPARISON: [facility], CR, XR FOOT LT MIN 3V, 12/24/2020, 11:25. [facility], CR, ANKLE 3 VIEWS RIGHT, 12/18/2009, 17:44. FINDINGS: Bones: There are moderately displaced fractures of the medial malleolus and distal fibula. A suspected mildly depressed fracture of the tibial plafond is also noted. No displaced fracture of the posterior malleolus. Soft tissues: There is periarticular soft tissue swelling. IMPRESSION: 1. Bimalleolar fracture of the left ankle. 2. Suspected mildly depressed fracture of the tibial plafond. Dictated by: Bobby Ortez M.D. on 12/24/2020 at 12:02 Approved by: Bobby Ortez M.D. on 12/24/2020 at 12:09 Extremity x-ray #2: Radiologist's Impression: [address] [id number] ReportSigned Patient: Nakita Polanco GMR#: [id number]: 7Acct:[id number]/Sex: 85 / FDate of Service: 12/24/20Loc: EDAccession Number: [id number] Procedure: XR foot LT min 3V Ordering Provider: Gurdeep Jefferson MD PROCEDURE: XR FOOT LT MIN 3V INDICATIONS: fall TECHNIQUE: 3 views of the foot were acquired. COMPARISON: [facility], CR, XR ANKLE LT MIN 3V, 12/24/2020, 11:22. FINDINGS: Bones: Evaluation limited by suboptimal positioning. There is a mildly displaced fracture on the dorsal aspect of the medial cuneiform. There is malalignment at the base of 2nd tarsometatarsal joint. Fractures of the medial and lateral malleoli are demonstrated as seen on the concurrent study of the ankle. Soft tissues: There is soft tissue swelling within the medial midfoot. IMPRESSION: 1. Fractures of the medial midfoot with subluxation of the 2nd tarsometatarsal joint suspicious for Lisfranc ligament injury. 2. Fractures of the medial and lateral malleoli redemonstrated in the ankle as seen on the concurrent study. Dictated by: Bobby Ortez M.D. on 12/24/2020 at 12:20 Approved by: Bobby Ortez M.D. on 12/24/2020 at 12:37 CT lower extremity: Radiologist's Impression: [address] [id number] Scan ReportSigned Patient: Nakita Polanco R#: [id number]: [id number]:[id number]/Sex: 85 / FDate of Service: 12/24/20Loc: EDAccession Number: [id number] Procedure: CT LE LT wo con Ordering Provider: Gurdeep Jefferson MD PROCEDURE: CT LE LT W CON INDICATIONS: Ankle/Foot/Fall/Fracture TECHNIQUE: Noncontrast 3 mm axial sections acquired of the left ankle, with coronal and sagittal reformats. COMPARISON: [facility], CR, XR ANKLE LT MIN 3V, 12/24/2020, 11:22. [facility], CR, XR FOOT LT MIN 3V, 12/24/2020, 11:25. [facility], CR, XR ANKLE LT MIN 3V, 12/24/2020, 13:49. [facility], CR, XR FOOT LT MIN 3V, 12/24/2020, 13:49. FINDINGS: Image quality: Excellent. Bones: There is a trimalleolar fracture. An oblique fracture is seen in the distal fibula above the ankle mortise likely involving the tibial fibular syndesmosis. There is a displaced medial malleolar fracture with 1 cm inferior displacement of the distal fracture fragment. There is a minimally displaced posterior malleolar fracture. Mild anterior subluxation of talus at the tibiotalar joint. There is mild posterior and lateral widening joint space. 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 Soft tissues: Diffuse soft tissue swelling. There is a small tibiotalar joint effusion. IMPRESSION: 1. Trimalleolar fracture of the ankle. 2. Mild anterior subluxation of talus at the tibiotalar joint. There is slight widening of the posterior and lateral lateral joint space of ankle mortise. Dictated by: Julio Salgado M.D. on 12/24/2020 at 14:41 Approved by: Julio Salgado M.D. on 12/24/2020 at 14:56 X-ray post reduction ankle: Radiologist's Impression: [address] [id number] ReportSigned Patient: Nakita Polanco R#: [id number]: 7Acct:[id number]/Sex: 85 / FDate of Service: 12/24/20Loc: EDAccession Number: [id number] Procedure: XR ankle LT min 3V Ordering Provider: Gurdeep Jefferson MD PROCEDURE: XR ANKLE LT MIN 3V INDICATIONS: repeat films TECHNIQUE: 3 views of the ankle were acquired. COMPARISON: [facility] , XR ANKLE LT MIN 3V, 12/24/2020, 11:22. FINDINGS: Bones: Patient is status post close reduction of lateral medial malleolar fractures. The lateral and medial malleolar fractures are mildly displaced following closed reduction. Probable depressed tibial plafond fracture is unchanged in appearance. Soft tissues: No tibiotalar joint effusion. Achilles tendon appears normal. IMPRESSION: Status post close reduction of lateral medial malleolar fractures Dictated by: Florence Esteves MD, PhD on 12/24/2020 at 14:45 Approved by: Florence Esteves MD, PhD on 12/24/2020 at 14:47 X-ray post reduction left foot: Radiologist's Impression: [address] [id number] ReportSigned Patient: Nakita Polanco GMR#: [id number]: 1936cct:[id number]/Sex: 85 / FDate of Service: 12/24/20Loc: EDAccession Number: [id number] Procedure: XR foot LT min 3V Ordering Provider: Gurdeep Jefferson MD PROCEDURE: XR FOOT LT MIN 3V INDICATIONS: repeat films TECHNIQUE: 3 views of the foot were acquired. COMPARISON: [facility], , XR FOOT LT MIN 3V, 12/24/2020, 11:25. FINDINGS: Bones: Mildly displaced fracture of the medial cuneiform is unchanged. Mild alignment of the 2nd tarsal-metatarsal joint is not significantly changed. Lateral medial malleolar fractures redemonstrated. Soft tissues: No tibiotalar joint effusion. Achilles tendon appears normal. IMPRESSION: 1. Mildly displaced fracture of the medial cuneiform. 2. Mild alignment of the 2nd tarsal-metatarsal joint compatible with Lisfranc injury. Dictated by: Florence Esteves MD, PhD on 12/24/2020 at 14:47 Approved by: Florence Esteves MD, PhD on 12/24/2020 at 14:51 ECG Data Attestation: I personally reviewed and interpreted this ECG as follows: Interpretation: Rate 62, atrial sensed ventricular paced rhythm. Discharge Plan Departure Patient Disposition: Home Clinical Impression: Closed fracture of ankle, Closed fracture of left foot Instructions: DI for Ankle Fracture, DI for Foot Fracture, How to Take Care of Your Splint Activity Restrictions/Additional Instructions: Call Dr. Billings office with Orthopedics to confirm your office appointment tomorrow. They are expecting to see you in the office. Be sure to have assistance any time getting up to move or to go to the restroom. Return if worse if any questions or concerns. Prescriptions: New hydrocodone-acetaminophen 5-325 mg tablet 1 tab PO Q6H PRN (Reason: pain) Qty: 15 RF: 0 No Action ASCORBIC ACID (VITAMIN C ER) 1,000 mg PO Q DAY Qty: 0 RF: 0 (DME) PT/OT Treat and Eval/Wheelchair Assessment Qty: 1 RF: 0 amlodipine [Norvasc] 5 mg tablet 5 mg PO BID Qty: 180 RF: 1 losartan 100 mg tablet 100 mg PO DAILY Qty: 90 RF: 0 atenolol 25 mg tablet 25 mg PO BID Qty: 180 RF: 1 atorvastatin 40 mg tablet 40 mg PO BEDTIME RF: 0 carbamazepine 200 mg tablet 200 mg PO TID RF: 0 phenobarbital 32.4 mg tablet 64.8 mg PO BEDTIME RF: 0 acetaminophen 325 mg Tablet 650 mg PO Q6HR PRN (Reason: Fever/Mild Pain (1-3)) Qty: 10 RF: 0 hydrocodone-acetaminophen 5-325 mg Tablet 1 tab PO Q4H PRN (Reason: pain) Qty: 10 RF: 0 amoxicillin 500 mg capsule 500 mg PO Q8H Qty: 15 RF: 0 phenobarbital 32.4 mg Tablet 64.8 mg PO BEDTIME Qty: 10 RF: 0 hydrocodone-acetaminophen 5-325 mg tablet 1 tab PO Q4-6H PRN (Reason: pain) Qty: 10 RF: 0 Referrals: Raquel Hammond MD [Physician] - Bacilio Davila DO [Primary Care Provider] - Bella Asif MD [Physician] -
[2020-12-24] MEDS: MORPHINE 4 MG/ML INJ IV ×2 (12:01→15:31)
[2020-12-24] MEDS: ONDANSETRON 4 MG/2 ML INJ IV (12:01)
[2020-12-24 12:10] LABS: Add Manual Diff / Slide Review NO; Basophils Absolute Auto 0 /uL (0-100); Basophils Percent Auto 0.5 % (0-2); Eosinophils Absolute Auto 100 /uL (0-450); Eosinophils Percent Auto 2.1 % (2-4); Hematocrit 37.4 % (36-46); Hemoglobin 12.4 g/dL (12.0-16.0); Lymphocytes Absolute Auto 1200 /uL (1100-4500); Lymphocytes Percent Auto 16.7 % (25-40); Mean Corpuscular HGB Conc 33.2 % (30-36); Mean Corpuscular Volume 90.4 fL (80-100); Monocytes Absolute Auto 600 /uL (0-900); Monocytes Percent Auto 8.2 % (3-14); Neutrophils Absolute Auto 5200 /uL (1500-7000); Neutrophils Percent Auto 72.5 % (50-75); Platelet Count 258 X10^3/uL (150-400); Red Blood Cell Count 4.14 X10^6/uL (4.0-5.2); Red Cell Distribution Width 13.6 % (11.6-14.8); White Blood Cell Count 7.2 X10^3/uL (4.5-11.0)
[2020-12-24 12:15] LABS: Prothrombin Time 11.3 SECONDS (10.1-12.7)
[2020-12-24 12:17] LABS: PTT Partial Thromboplastin Tim 30 SECONDS (26.4-36.2)
[2020-12-24 12:19] LABS: Alanine Aminotransferase 19 IU/L (<35); Albumin 3.4 g/dL (3.5-5.0); Albumin Globulin Ratio 1.2 (1.0-2.8); Alkaline Phosphatase 135 U/L (38-126); Aspartate Aminotransferase 23 IU/L (14-36); BUN Creatinine Ratio 18.6 (6-22); Bilirubin Total 0.3 mg/dL (0.2-1.3); Blood Urea Nitrogen 11 mg/dL (7-17); Calcium 9.2 mg/dL (8.4-10.2); Carbon Dioxide 34 mmol/L (22-32); Chloride 97 mmol/L (98-107); Estimated Glomerular Filt Rate > 60.0 mL/min (>60); Globulin 2.8 g/dL (1.7-4.1); Glucose 96 mg/dL (80-110); HEMOLYSIS < 15 (0-50); Potassium 4.4 mmol/L (3.4-5.1); Sodium 134 mmol/L (137-145); Total Protein 6.2 g/dL (6.3-8.2)
--- NOTE | 2020-12-24 13:45 | DI.RAD.S_ITS ---
PROCEDURE: XR FOOT LT MIN 3V INDICATIONS: repeat films TECHNIQUE: 3 views of the foot were acquired. COMPARISON: [facility], , XR FOOT LT MIN 3V, 12/24/2020, 11:25. FINDINGS: Bones: Mildly displaced fracture of the medial cuneiform is unchanged. Mild alignment of the 2nd tarsal-metatarsal joint is not significantly changed. Lateral medial malleolar fractures redemonstrated. Soft tissues: No tibiotalar joint effusion. Achilles tendon appears normal. IMPRESSION: 1. Mildly displaced fracture of the medial cuneiform. 2. Mild alignment of the 2nd tarsal-metatarsal joint compatible with Lisfranc injury. Dictated by: Florence Esteves MD, PhD on 12/24/2020 at 14:47 Approved by: Florence Esteves MD, PhD on 12/24/2020 at 14:51
--- NOTE | 2020-12-24 13:45 | DI.RAD.S_ITS ---
PROCEDURE: XR ANKLE LT MIN 3V INDICATIONS: repeat films TECHNIQUE: 3 views of the ankle were acquired. COMPARISON: [facility], , XR ANKLE LT MIN 3V, 12/24/2020, 11:22. FINDINGS: Bones: Patient is status post close reduction of lateral medial malleolar fractures. The lateral and medial malleolar fractures are mildly displaced following closed reduction. Probable depressed tibial plafond fracture is unchanged in appearance. Soft tissues: No tibiotalar joint effusion. Achilles tendon appears normal. IMPRESSION: Status post close reduction of lateral medial malleolar fractures Dictated by: Florence Esteves MD, PhD on 12/24/2020 at 14:45 Approved by: Florence Esteves MD, PhD on 12/24/2020 at 14:47
--- NOTE | 2020-12-24 13:48 | DI.CT.S_ITS ---
PROCEDURE: CT LE LT W CON INDICATIONS: Ankle/Foot/Fall/Fracture TECHNIQUE: Noncontrast 3 mm axial sections acquired of the left ankle, with coronal and sagittal reformats. COMPARISON: [facility], CR, XR ANKLE LT MIN 3V, 12/24/2020, 11:22. [facility], CR, XR FOOT LT MIN 3V, 12/24/2020, 11:25. [facility], CR, XR ANKLE LT MIN 3V, 12/24/2020, 13:49. [facility], CR, XR FOOT LT MIN 3V, 12/24/2020, 13:49. FINDINGS: Image quality: Excellent. Bones: There is a trimalleolar fracture. An oblique fracture is seen in the distal fibula above the ankle mortise likely involving the tibial fibular syndesmosis. There is a displaced medial malleolar fracture with 1 cm inferior displacement of the distal fracture fragment. There is a minimally displaced posterior malleolar fracture. Mild anterior subluxation of talus at the tibiotalar joint. There is mild posterior and lateral widening joint space. 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 Soft tissues: Diffuse soft tissue swelling. There is a small tibiotalar joint effusion. IMPRESSION: 1. Trimalleolar fracture of the ankle. 2. Mild anterior subluxation of talus at the tibiotalar joint. There is slight widening of the posterior and lateral lateral joint space of ankle mortise. Dictated by: Julio Salgado M.D. on 12/24/2020 at 14:41 Approved by: Julio Salgado M.D. on 12/24/2020 at 14:56
[2020-12-24 14:25] LABS: COVID19 - ADMIT (NP swab/PCR) Negative (Negative)
--- NOTE | 2020-12-24 15:22 | PC.NURSE ---
Morphine ordered with override per Provider Okayed, Pharmacy Okayed entered by error.
--- NOTE | 2020-12-24 16:00 | PC.NURSE ---
patients daughter expressed her concerns about the patient going back to [facility]. Dr. Jefferson notified and he spoke with patient and daughter.
== END 2020-12-24 16:25 | disposition home or self-care (01) ==
PROVIDERS: Emergency Provider Emergency Medicine; PCP Family Medicine
DX: S82.892A Other fracture of left lower leg, initial encounter for closed fracture (principal); S92.902A Unspecified fracture of left foot, initial encounter for closed fracture; W19.XXXA Unspecified fall, initial encounter; Z20.822 Contact with and (suspected) exposure to COVID-19; I10 Essential (primary) hypertension; I25.2 Old myocardial infarction
CPT/HCPCS: 36415; 73610; 73630; 73700; 80053; 85025; 85610; 85730; 87635; 93005; 93010; 96374; 96375; 96376; 99284; C9803; J2270; J2405